=== PATIENT | female | born 1965 | race Caucasian/White ===

== ENCOUNTER 2022-01-11 13:03 | Inpatient (IN) | payer BC ==
[~2022-01-11] VITALS: Ht 165.1 cm; Wt 190.5 kg
[2022-01-11] MEDS ORDERED: BISACODYL 10 MG SUPP (DULCOLAX) PR PRN (13:15)
[2022-01-11] MEDS ORDERED: FLEET ENEMA ADULT 1 EA BTL PR PRN (13:15)
[2022-01-11] MEDS ORDERED: LACTULOSE SYRUP 10GM/15ML (ENULOSE) 30ML UDC PO PRN (13:15)
[2022-01-11] MEDS ORDERED: MELATONIN 3 MG TABLET PO PRN (13:15)
[2022-01-11] MEDS ORDERED: ALPRAZolam 0.25 MG (XANAX) TAB PO PRN (13:15)
[2022-01-11] MEDS ORDERED: ACETAMINOPHEN 325 MG TABLET PO PRN (13:15)
[2022-01-11] MEDS ORDERED: DOCUSATE SODIUM 100 MG (COLACE) CAP PO PRN (13:15)
[2022-01-11] MEDS ORDERED: CALCIUM CARBONATE 500 MG (TUMS) TAB.CHEW PO PRN (13:15)
[2022-01-11] MEDS ORDERED: LOPERAMIDE 2 MG (IMODIUM) TABLET PO PRN (13:15)
[2022-01-11] MEDS ORDERED: diphenhydrAMINE 25 MG TAB (BENADRYL) PO PRN (13:15)
[2022-01-11] MEDS ORDERED: ONDANSETRON 4 MG (ZOFRAN) ORAL DISSOLVE TAB PO PRN (13:15)
[2022-01-11] MEDS ORDERED: guaiFENesin/CODEINE (ROBITUSSIN AC) 10ML UDC PO PRN (13:15)
[2022-01-11] MEDS ORDERED: METF-478 PO (14:18)
[2022-01-11] MEDS ORDERED: ACET-2267 PO (14:18)
[2022-01-11] MEDS ORDERED: HYDR-3820 PO (14:18)
[2022-01-11] MEDS ORDERED: CHOL20003 PO (14:18)
[2022-01-11] MEDS ORDERED: MELO15TA39 PO (14:18)
[2022-01-11] MEDS ORDERED: FLUT9.9S NSEACH (14:18)
[2022-01-11] MEDS ORDERED: CYCL10TA25 PO (14:18)
[2022-01-11] MEDS ORDERED: CETI10TA17 PO (14:18)
[2022-01-11] MEDS ORDERED: LEVO50TA6 PO (14:18)
[2022-01-11] MEDS ORDERED: SEMA0.25 SQ (14:18)
[2022-01-11] MEDS ORDERED: PANT40TA52 PO (14:18)
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
[2022-01-11] MEDS ORDERED: RX-CYCLOBENZAPRINE 10 MG (FLEXERIL) TAB PPK#3 PO PRN (16:00)
[2022-01-11] MEDS ORDERED: NON-FORMULARY MEDICATION 1 EA EA (Semaglutide (Ozempic) 0.5 MG) SQ SCH (16:00)
[2022-01-11] MEDS ORDERED: CYCLOBENZAPRINE 10 MG (FLEXERIL) TAB PO PRN (16:15)
[2022-01-11 16:38] VITALS: BP 136/82
[2022-01-11] MEDS: ACETAMINOPHEN 500 MG TAB (TYLENOL) PO PRN (16:44)
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
[2022-01-11 20:00] VITALS: BP 132/81
[2022-01-11] MEDS: polyethylene glycoL POWDER 17 GM (MIRALAX) PACK PO SCH (21:40)
[2022-01-11] MEDS: DOCUSATE SODIUM 100 MG (COLACE) CAP PO SCH (21:40)
[2022-01-11] MEDS: SENNA W/DOCUSATE (SENOKOT S) TABLET PO SCH (21:44)
[2022-01-12] MEDS: ACETAMINOPHEN 500 MG TAB (TYLENOL) PO PRN ×3 (03:18→15:00)
[2022-01-12 06:03] LABS: BASOPHILS # (AUTO) 0.1 10^3/uL (0.0-0.1); BASOPHILS % (AUTO) 1 % (0-10); EOSINOPHILS # (AUTO) 0.6 10^3/uL (0.0-0.3); EOSINOPHILS % (AUTO) 11 % (0-10); HEMATOCRIT 35 % (35-52); LYMPHOCYTES # (AUTO) 1.2 10^3/uL (1.0-4.0); LYMPHOCYTES % (AUTO) 24 % (12-44); MEAN CORPUSCULAR HEMOGLOBIN 29 pg (25-34); MEAN CORPUSCULAR HGB CONC 31 g/dL (32-36); MEAN CORPUSCULAR VOLUME 92 fL (80-99); MONOCYTES # (AUTO) 0.6 10^3/uL (0.0-1.0); MONOCYTES % (AUTO) 12 % (0-12); NEUTROPHILS # (AUTO) 2.5 10^3/uL (1.8-7.8); NEUTROPHILS % (AUTO) 51 % (42-75); PLATELET COUNT 247 10^3/uL (130-400); WHITE BLOOD COUNT 4.8 10^3/uL (4.3-11.0)
[2022-01-12 06:16] LABS: POTASSIUM 3.5 MMOL/L (3.6-5.0)
[2022-01-12 06:17] LABS: CALCIUM 8.6 MG/DL (8.5-10.1)
[2022-01-12 06:18] LABS: TOTAL PROTEIN 5.8 GM/DL (6.4-8.2)
[2022-01-12 06:20] LABS: BILIRUBIN,TOTAL 0.7 MG/DL (0.1-1.0)
[2022-01-12 06:22] LABS: CREATININE SERUM 0.57 MG/DL (0.60-1.30)
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
[2022-01-12] MEDS: LEVOTHYROXINE 50 MCG (LEVOTHROID) TAB PO SCH (06:44)
[2022-01-12 08:00] VITALS: BP 132/76
[2022-01-12] MEDS: MELOXICAM 7.5 MG (MOBIC) TABLET PO SCH (08:09)
[2022-01-12] MEDS: DOCUSATE SODIUM 100 MG (COLACE) CAP PO SCH ×2 (08:09→21:10)
[2022-01-12] MEDS: SENNA W/DOCUSATE (SENOKOT S) TABLET PO SCH ×2 (08:10→21:10)
[2022-01-12] MEDS: LORATADINE (CLARITIN) 10 MG TAB PO SCH (08:10)
[2022-01-12] MEDS: VITAMIN D3 25 MCG (1,000 UNITS) TABLET PO SCH (08:11)
[2022-01-12] MEDS: metFORMIN XR 500 MG (GLUCOPHAGE XR) TAB PO SCH (08:11)
[2022-01-12] MEDS: PANTOPRAZOLE 40 MG (PROTONIX) TAB PO SCH (08:11)
[2022-01-12] MEDS: polyethylene glycoL POWDER 17 GM (MIRALAX) PACK PO SCH ×2 (08:12→21:10)
[2022-01-12] MEDS ORDERED: CETIRIZINE HCL (ZYRTEC) 10 MG TAB PO SCH (09:00)
[2022-01-12] MEDS ORDERED: NON-FORMULARY MEDICATION 1 EA EA (Meloxicam 15 MG) PO SCH (09:00)
[2022-01-12] MEDS ORDERED: NON-FORMULARY MEDICATION 1 EA EA (Fluticasone Propionate (Flonase Allergy Relief) 2 SPRAY) NSEACH SCH (09:00)
[2022-01-12] MEDS ORDERED: NON-FORMULARY MEDICATION 1 EA EA (Cholecalciferol (Vitamin D3) (Vitamin D3) 50 MCG) PO SCH (09:00)
--- NOTE | 2022-01-12 09:24 | Occupational Ther Daily Note ---
OT Current Status-Daily Note Subjective Pt alert, laying in bed when WOODALL entered. Pt agreed to therapy, no c/o pain reported. Mental Status/Objective Patient Orientation: Person, Place, Time, Situation ADL-Treatment Co-treat with PT ([phone]) due to skill of 2 clinicals required which a rehab office coordinator could not perform in order to coordinate UE/LEs, decrease fall risk, focus on higher level balance tasks, and due to pt's limitations in strength, mobility/transfers, and safety. PT focusing on transfers, w/c mobility and LE placement while OT focusing on UE placement, ADLs, and toileting. Pt agreed to get dressed for the day. Pt transferred from supine to EOB with CGA. Once at EOB, pt demonstrated good sitting balance. After set up, pt donned UB dressing. Pt required Max A to thread LB dressing through BLE. Pt required max A to don socks and footwear on LLE. Pt sit-stand from raised EOB with Mod A to hike LB dressing with Mod A x2. Pt SPT to w/c with Mod A. Once back in room from therapy gym, pt requested to use bathroom. Pt sit-stand using grabs bars with Max A. Pt required increased time. Pt sit-stand from toilet using grab bars with Max A. Required Min A with toilet hygiene. Pt completed oral hygiene while sitting in w/c independently. Therapy Code Descriptions/Definitions Functional [place] Measure: 0=Not Assessed/NA 4=Minimal Assistance 1=Total Assistance 5=Supervision or Setup 2=Maximal Assistance 6=Modified [place] 3=Moderate Assistance 7=Complete IndependenceSCALE: Activities may be completed with or without assistive devices. 0-Jzrhkcruxi-hmhnzpw completes the activity by him/herself with no assistance from a helper. 5-Set-up or Clean-up Assistance-helper sets up or cleans up; patient completes activity. [place] assists only prior to or following the activity. 4-Supervision or Touching Assistance-helper provides verbal cues and/or touching/steadying and/or contact guard assistance as patient completes activity. Assistance may be provided throughout the activity or intermittently. 3-Partial/Moderate Assistance-helper does LESS THAN HALF the effort. [place] lifts, holds or supports trunk or limbs, but provides less than half the effort. 2-Substantial/Maximal Assistance-helper does MORE THAN HALF the effort. [place] lifts or holds trunk or limbs and provides more than half the effort. 3-Gmjwbeybg-dyxvop does ALL the effort. Patient does none of the effort to complete the activity. Or, the assistance of 2 or more helpers is required for the patient to complete the activity. If activity was not attempted, code reason: 7-Patient Refused. 9-Not Applicable-not attempted and the patient did not perform the activity before the current illness, exacerbation or injury. 10-Not Attempted due to Environmental Limitations-(lack of equipment, weather restraints, etc.). 88-Not Attempted due to Medical Conditions or Safety Concerns. Oral Hygiene (QC): 6 (Independently sitting in w/c.) Upper Body Dressing (QC): 5 Lower Body Dressing (QC): 3 Toileting Hygiene (QC): 3 Toilet Transfer (QC): 2 Other Treatment Pt participated in functional w/c mobility from room to therapy for increased BUE strength and improved safety with w/c mobility at home. Pt required multiple resting breaks due to decreased activity tolerance and poor endurance. Pt was able to propell self forward group home then requested to go backwards the rest of the way to therapy gym. To increase dynamic standing balance, pt participated in x3 sit-insurance account executive parallel bars by reaching to tap therapist hand in planes alternating between L and R. Pt demonstrated fair balance and fatigued quickly. Education OT Patient Education: Correct positioning, Energy conservation, Exercise program Teaching Recipient: Patient Teaching Methods: Demonstration, Discussion Response to Teaching: Verbalize Understanding, Return Demonstration OT Short Term Goals Short Term Goals Time Frame: Jan 18, 2022 Eatin Oral hygiene: 5 Toileting hygiene: 2 Shower/bathe self: 3 Upper body dressin Lower body dressin Putting on/taking off footwear: 2 OT Mcc Goals It Compliance Analyst Goals Time Frame: January 30, 2022 Eating (QC): 6 Oral Hygiene (QC): 6 Toileting Hygiene (QC): 6 Shower/Bathe Self (QC): 5 Upper Body Dressing (QC): 5 Lower Body Dressing (QC): 5 On/Off Footwear (QC): 5 1=Demonstrate adherence to instructed precautions during ADL tasks. 2=Patient will verbalize/demonstrate understanding of assistive dev ices/modifications for ADL. 3=Patient will improve strength/tolerance for activity to enable patient to perform ADL's. OT Education/Plan Problem List/Assessment Assessment: Decreased Activ Tolerance, Decreased UE Strength, Impaired I ADL's, Impaired Self-Care Skills Discharge Recommendations Plan/Recommendations: Continue POC Treatment Plan/Plan of Care Patient would benefit from OT for education, treatment and training to promote independence in ADL's, mobility, safety and/or upper extremity function for ADL's. Plan of Care: ADL Retraining, Functional Mobility, Group Exercise/Act as Ind, Orthotic Fitting/Training, UE Funct Exercise/Act, W/C Management Training Treatment Duration: January 30, 2022 Frequency: At least 5 of 7 days/Wk (IRF) Estimated Hrs Per Day: 1.5 hours per day Rehab Potential: Fair Time/GCodes Start Time: 08:00 Stop Time: 09:15 Total Time Billed (hr/min): 75 Billed Treatment Time 1 visit- ADL 3 (45 mins) FA 2 (30mins) Co-treat with PT ([phone]) Individual ([phone]) GAYATRI MAR Jan 12, 2022 09:24
--- NOTE | 2022-01-12 09:34 | Physical Therapy Daily Note ---
PT Daily Note-Current Subjective Patient reports feeling good today and not in much pain. PT and OT co-treated today to work on Functional standing and transfer activities due to weakness, requiring extra assistance for transfers, fall risk and safety Pain Numeric Pain Scale: 1 Location: Right Location Body Site: Ankle Mental Status Patient Orientation: Person, Place, Time, Situation [place] Transfers SCALE: Activities may be completed with or without assistive devices. 5-Xrujlacffh-kvvmvmy completes the activity by him/herself with no assistance from a helper. 5-Set-up or Clean-up Assistance-helper sets up or cleans up; patient completes activity. [place] assists only prior to or following the activity. 4-Supervision or Touching Assistance-helper provides verbal cues and/or touching/steadying and/or contact guard assistance as patient completes activity. Assistance may be provided throughout the activity or intermittently. 3-Partial/Moderate Assistance-helper does LESS THAN HALF the effort. [place] lifts, holds or supports trunk or limbs, but provides less than half the effort. 2-Substantial/Maximal Assistance-helper does MORE THAN HALF the effort. [place] lifts or holds trunk or limbs and provides more than half the effort. 2-Mbzfzehgk-fekufx does ALL the effort. Patient does none of the effort to compl ete the activity. Or, the assistance of 2 or more helpers is required for the patient to complete the activity. If activity was not attempted, code reason: 7-Patient Refused. 9-Not Applicable-not attempted and the patient did not perform the activity before the current illness, exacerbation or injury. 10-Not Attempted due to Environmental Limitations-(lack of equipment, weather restraints, etc.). 88-Not Attempted due to Medical Conditions or Safety Concerns. Roll Left & Right (QC): 5 Sit to Lying (QC): 3 Lying to Sitting/Side of Bed(Q: 3 Sit to Stand (QC): 2 Chair/Yiq-hd-Hwwrn Xfer(QC): 2 Toilet Transfer (QC): 2 Weight Bearing Right Lower Extremity: Right Touch Toe Bearing Full Weight Bearing Gait Training Does the Patient Walk?: No and Walking Goal IS indicated Wheelchair Training Does the Pt Use a Wheelchair?: Yes Wheel 50 ft with 2 turns (QC): 4 (SBA) Type of Wheelchair: Manual Distance:120'x2 Exercises Standing: Sit to Stand Standing Reps: 3 Parallel bars. Treatments Wheelchair mobility, Standing balance, transfers. Assessment Current Status: Fair Progress Patient can propel wheel chair herself using L LE and arms, but it is very slow and fatiguing for her and can only go short distances before needing a rest break. Patient starts off by propelling forward, but when fatigued, finds it easier to propel backwards. Patient requires max assist to stand and can only stand for a short time (about 30seconds), and requires verbal cues for correct technique and positioning. PT worked on standing balance and transfers, while OT worked on dressing, and toileting. Patient was left with OT to continue self- care activities. PT Short Term Goals Short Term Goals Time Frame: Jan 18, 2022 Roll Left & Right: 6 Sit to lyin Lying to sitting on side of be: 4 Sit to stand: 3 Chair/umq-sw-qxbec transfer: 4 Wheel 50ft w/2 turns: 3 PT Political Research Scientist Goals Correction Goals PT Political Research Scientist Goals Time Frame: February 01, 2022 Roll Left & Right (QC): 6 Sit to Lying (QC): 3 (Brianna) Lying-Sitting on Side/Bed(QC): 6 Sit to Stand (QC): 4 (CGA) Chair/Wvq-nj-Gysut Xfer(QC): 4 (SBA) Toilet Transfer (QC): 4 (SBA) Car Transfer (QC): 3 (Brianna) Does the Patient Walk: Yes Walk 10 feet (QC): 4 (CGA) Walk 50ft with 2 Turns (QC): 88 Walk 150 ft (QC): 88 Walking 10ft on Uneven Surface: 88 1 Step (curb) (QC): 88 4 Steps (QC): 88 12 Steps (QC): 88 Picking up an Object (QC): 4 (using technical operations specialist) Wheel 50 feet with 2 turns (QC: 4 Wheel 150 feet: 4 PT Plan Problem List Problem List: Activity Tolerance, Functional Strength, Safety, Balance, Gait, Transfer, Bed Mobility, ROM Treatment/Plan Treatment Plan: Continue Plan of Care Treatment Plan: Bed Mobility, Education, Functional Activity Yadi, Functional Strength, Group Therapy, Gait, Safety, Therapeutic Exercise, Transfers Treatment Duration: February 01, 2022 Frequency: At least 5 of 7 days/Wk (IRF) Estimated Hrs Per Day: 1.5 hours per day Patient and/or Family Agrees t: Yes Safety Risks/Education Patient Education: Gait Training, Transfer Techniques, Correct Positioning, W/C Management, Disease Process, Safety Issues Teaching Recipient: Patient Teaching Methods: Discussion Response to Teaching: Verbalize Understanding, Return Demonstration, Reinforcement Needed Time/GCodes Time In: 0800 Time Out: 0900 Total Billed Treatment Time: 60 Total Billed Treatment 1 visit FA 60min MARLEN NEUMANN PT Jan 12, 2022 09:34
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
--- NOTE | 2022-01-12 14:58 | Physical Therapy Daily Note ---
PT Daily Note-Current Subjective Patient was in bed and consented to treatment. Patient had just finished her lunch. Pain Location: No Pain Reported Mental Status Patient Orientation: Person, Place, Time, Situation [place] Transfers SCALE: Activities may be completed with or without assistive devices. 6-Ztmrbjlvkv-yrbquus completes the activity by him/herself with no assistance from a helper. 5-Set-up or Clean-up Assistance-helper sets up or cleans up; patient completes activity. [place] assists only prior to or following the activity. 4-Supervision or Touching Assistance-helper provides verbal cues and/or touching/steadying and/or contact guard assistance as patient completes activity. Assistance may be provided throughout the activity or intermittently. 3-Partial/Moderate Assistance-helper does LESS THAN HALF the effort. [place] lifts, holds or supports trunk or limbs, but provides less than half the effort. 2-Substantial/Maximal Assistance-helper does MORE THAN HALF the effort. [place] lifts or holds trunk or limbs and provides more than half the effort. 0-Woesfuxvb-yakgro does ALL the effort. Patient does none of the effort to complete the activity. Or, the assistance of 2 or more helpers is required for the patient to complete the activity. If activity was not attempted, code reason: 7-Patient Refused. 9-Not Applicable-not attempted and the patient did not perform the activity before the current illness, exacerbation or injury. 10-Not Attempted due to Environmental Limitations-(lack of equipment, weather restraints, etc.). 88-Not Attempted due to Medical Conditions or Safety Concerns. Weight Bearing Right Lower Extremity: Right Touch Toe Bearing Full Weight Bearing Exercises Supine Ex: Ankle pumps, Quad Set, Glut sets, Heel Slides, Straight leg raise, Hip abd/add Supine Reps: 10 Treatments LE strengthening Assessment Current Status: Good Progress Patient demonstrates weakness and ROM (B) with LE exercises but states she wants to do them regularly. Patient was left in bed with call light, tray, and all needs met. PT Short Term Goals Short Term Goals Time Frame: Jan 18, 2022 Roll Left & Right: 6 Sit to lyin Lying to sitting on side of be: 4 Sit to stand: 3 Chair/jss-qa-sjkzi transfer: 4 Wheel 50ft w/2 turns: 3 PT Usp Goals Usp Goals PT Health Care Administrator Goals Time Frame: February 01, 2022 Roll Left & Right (QC): 6 Sit to Lying (QC): 3 (Brianna) Lying-Sitting on Side/Bed(QC): 6 Sit to Stand (QC): 4 (CGA) Chair/Vxq-qa-Qxwwl Xfer(QC): 4 (SBA) Toilet Transfer (QC): 4 (SBA) Car Transfer (QC): 3 (Brianna) Does the Patient Walk: Yes Walk 10 feet (QC): 4 (CGA) Walk 50ft with 2 Turns (QC): 88 Walk 150 ft (QC): 88 Walking 10ft on Uneven Surface: 88 1 Step (curb) (QC): 88 4 Steps (QC): 88 12 Steps (QC): 88 Picking up an Object (QC): 4 (using space systems operations manager) Wheel 50 feet with 2 turns (QC: 4 Wheel 150 feet: 4 PT Plan Problem List Problem List: Activity Tolerance, Functional Strength, Safety, Balance, Gait, Transfer, Bed Mobility, ROM Treatment/Plan Treatment Plan: Continue Plan of Care Treatment Plan: Bed Mobility, Education, Functional Activity Yadi, Functional Strength, Group Therapy, Gait, Safety, Therapeutic Exercise, Transfers Treatment Duration: February 01, 2022 Frequency: At least 5 of 7 days/Wk (IRF) Estimated Hrs Per Day: 1.5 hours per day Patient and/or Family Agrees t: Yes Safety Risks/Education Patient Education: Correct Positioning, Safety Issues Teaching Recipient: Patient Teaching Methods: Discussion Response to Teaching: Verbalize Understanding Instructed on bed exercises previously listed in the room 3x per day. Time/GCodes Time In: 1255 Time Out: 1310 Total Billed Treatment Time: 15 Total Billed Treatment 1 visit EX 15 MARLEN NEUMANN PT Jan 12, 2022 14:58
--- NOTE | 2022-01-12 16:14 | Diagnostic Imaging Report ---
PROCEDURE: Pelvic comp/transvaginal sonogram. TECHNIQUE: Complete transabdominal and transvaginal pelvic ultrasound was performed. In addition, limited pelvic Doppler was performed. INDICATION: Vaginal mass noted on outside CT. FINDINGS: Outside study is not available for comparison. Uterus may be surgically absent or nonvisualized. There is a cystic mass in the region of the cervix measuring 3.5 x 2.5 cm. This may account for the mass noted on outside imaging. Right ovary measures 3.1 x 1.4 x 2.6 cm. There is blood flow to the right ovary. Left ovary was not visualized. Overall quality of study is somewhat limited due to patient body habitus. IMPRESSION: There is a large cystic lesion in the region of the cervix of 3.5 cm x 2.5 cm x 4.0 cm. This may account for the abnormality noted on outside imaging. No other significant abnormality is detected. Dictated by: Dictated on workstation # [id number]
[2022-01-12] MEDS: FLUTICASONE NASAL SPRAY (FLONASE) 16 GM BTL NS SCH (16:37)
[2022-01-12 20:37] VITALS: BP 109/73
[2022-01-12] MEDS: MICONAZOLE 2% POWDER (DESENEX AF) 90 GM TOP SCH (21:10)
[2022-01-13] MEDS: ACETAMINOPHEN 500 MG TAB (TYLENOL) PO PRN ×3 (01:02→17:57)
[2022-01-13] MEDS: LEVOTHYROXINE 50 MCG (LEVOTHROID) TAB PO SCH (06:08)
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
[2022-01-13 07:37] VITALS: BP 122/61
[2022-01-13] MEDS: FLUTICASONE NASAL SPRAY (FLONASE) 16 GM BTL NS SCH (08:06)
[2022-01-13] MEDS: PANTOPRAZOLE 40 MG (PROTONIX) TAB PO SCH (08:07)
[2022-01-13] MEDS: VITAMIN D3 25 MCG (1,000 UNITS) TABLET PO SCH (08:07)
[2022-01-13] MEDS: MELOXICAM 7.5 MG (MOBIC) TABLET PO SCH (08:07)
[2022-01-13] MEDS: LORATADINE (CLARITIN) 10 MG TAB PO SCH (08:07)
[2022-01-13] MEDS: metFORMIN XR 500 MG (GLUCOPHAGE XR) TAB PO SCH (08:07)
--- NOTE | 2022-01-13 09:33 | Physical Therapy Daily Note ---
PT Daily Note-Current Subjective Patient was in bed prior to treatment and consented with no new complaints. Patient states that she would like to take a shower. Patient was co-treated with OT due to balance issues, weakness, TTWB status, fall risk, and safety. Appearance Patient in WC at bedside post tx with nurse call, phone, tray, all needs met. Mental Status Patient Orientation: Person, Place, Time, Situation cam boot Transfers SCALE: Activities may be completed with or without assistive devices. 8-Ttdwzimenv-bzzahok completes the activity by him/herself with no assistance from a helper. 5-Set-up or Clean-up Assistance-helper sets up or cleans up; patient completes activity. [place] assists only prior to or following the activity. 4-Supervision or Touching Assistance-helper provides verbal cues and/or touching/steadying and/or contact guard assistance as patient completes activit y. Assistance may be provided throughout the activity or intermittently. 3-Partial/Moderate Assistance-helper does LESS THAN HALF the effort. [place] lifts, holds or supports trunk or limbs, but provides less than half the effort. 2-Substantial/Maximal Assistance-helper does MORE THAN HALF the effort. [place] lifts or holds trunk or limbs and provides more than half the effort. 8-Layhxxhdf-nnubtz does ALL the effort. Patient does none of the effort to complete the activity. Or, the assistance of 2 or more helpers is required for the patient to complete the activity. If activity was not attempted, code reason: 7-Patient Refused. 9-Not Applicable-not attempted and the patient did not perform the activity before the current illness, exacerbation or injury. 10-Not Attempted due to Environmental Limitations-(lack of equipment, weather restraints, etc.). 88-Not Attempted due to Medical Conditions or Safety Concerns. Sit to Stand (QC): 2 Chair/Ibb-np-Iuuqz Xfer(QC): 2 Weight Bearing Right Lower Extremity: Right Touch Toe Bearing Full Weight Bearing Gait Training Does the Patient Walk?: No and Walking Goal IS indicated Wheelchair Training Does the Pt Use a Wheelchair?: Yes Wheel 50 ft with 2 turns (QC): 4 Type of Wheelchair: Manual wheeled 100ft with multiple turns. Mobility was slow paced Exercises Standing: Sit to Stand Standing Reps: 4 PT worked on positioning, standing balance, transfer technique. OT worked on UE positioning, reaching, UE coordination. Patient also performed Hip flexion and ABD for 10reps Treatments Bathing with OT, wheelchair mobility, standing tolerance and balance, LE strengthening Assessment Current Status: Fair Progress Patient was showered today with OT today. PT and OT co-treaded today; PT worked on transfers, and positioning, OT worked on bathing, UE positioning, and coordination. Pt transfer from bed to chair was still max assist, but is slightly improving. Patient was able to stand for longer time (up to 2 min) compared to previous session, and also better able to perform UE activities with OT while standing. Patient is mostly compliant with WB status today. Patient demonstrated improved strength with WC mobility, and was able to wheel forward the entire distance back to her room (100ft). Patient was left in chair, with call light, tray, and all needs met. PT Short Term Goals Short Term Goals Time Frame: Jan 18, 2022 Roll Left & Right: 6 Sit to lyin Lying to sitting on side of be: 4 Sit to stand: 3 Chair/tkz-id-wgque transfer: 4 Wheel 50ft w/2 turns: 3 PT Longterm Goals Concert Promoter Goals PT Concert Promoter Goals Time Frame: February 01, 2022 Roll Left & Right (QC): 6 Sit to Lying (QC): 3 (Brianna) Lying-Sitting on Side/Bed(QC): 6 Sit to Stand (QC): 4 (CGA) Chair/Xuy-ci-Twbfn Xfer(QC): 4 (SBA) Toilet Transfer (QC): 4 (SBA) Car Transfer (QC): 3 (Brianna) Does the Patient Walk: Yes Walk 10 feet (QC): 4 (CGA) Walk 50ft with 2 Turns (QC): 88 Walk 150 ft (QC): 88 Walking 10ft on Uneven Surface: 88 1 Step (curb) (QC): 88 4 Steps (QC): 88 12 Steps (QC): 88 Picking up an Object (QC): 4 (using test consultant) Wheel 50 feet with 2 turns (QC: 4 Wheel 150 feet: 4 PT Plan Problem List Problem List: Activity Tolerance, Functional Strength, Safety, Balance, Gait, Transfer, Bed Mobility, ROM Treatment/Plan Treatment Plan: Continue Plan of Care Treatment Plan: Bed Mobility, Education, Functional Activity Yadi, Functional Strength, Group Therapy, Gait, Safety, Therapeutic Exercise, Transfers Treatment Duration: February 01, 2022 Frequency: At least 5 of 7 days/Wk (IRF) Estimated Hrs Per Day: 1.5 hours per day Patient and/or Family Agrees t: Yes Safety Risks/Education Patient Education: Transfer Techniques, Correct Positioning, W/C Management, Safety Issues Teaching Recipient: Patient Teaching Methods: Discussion Response to Teaching: Verbalize Understanding, Return Demonstration Time/GCodes Time In: 0900 Time Out: 1030 Total Billed Treatment Time: 90 Total Billed Treatment 1 visit FA 60 min EX 30min MARLEN NEUMANN PT Jan 13, 2022 09:33
[2022-01-13] MEDS: DOCUSATE SODIUM 100 MG (COLACE) CAP PO SCH ×2 (10:23→20:45)
[2022-01-13] MEDS: polyethylene glycoL POWDER 17 GM (MIRALAX) PACK PO SCH ×2 (10:23→20:45)
[2022-01-13] MEDS: SENNA W/DOCUSATE (SENOKOT S) TABLET PO SCH ×2 (10:24→20:45)
--- NOTE | 2022-01-13 10:25 | Occupational Ther Daily Note ---
OT Current Status-Daily Note Subjective Pt alert, laying in bed with HOB raised when WOOD[place] entered. Pt requested to complete shower today. No c/o pain reported. Mental Status/Objective Patient Orientation: Person, Place, Time, Situation Attachments: Other-See Comments ADL-Treatment Co-treat with PT ([phone]) due to skill of 2 clinicals required which a rehab department manager could not perform in order to coordinate UE/LEs, decrease fall risk, focus on higher level balance tasks, and due to pt's limitations in strength, mobility/transfers, and safety. PT focusing on LE placement, transfers, and w/c mobility while OT focuses on ADLs, UE placement, amnd functional/safe balance. Pt transferred from supine to EOB with supervision. Pt SPT from EOB to shower chair. See PT notes for transfer scores. Pt transported from room to shower room. Pt performed shower and was able to cleanse/dry UB, chest, abdomen, and upper L L. Pt required assist to cleanse L lower leg and buttocks. After set up, pt donned UB dressing. Required assist to thread BLE through LB dressing. Pt sit-stand from shower chair to hike LB dressing with Mod A. Required Max A to don L footwear. Once back in room, pt completed oral hygiene and basic grooming task of combing hair while sitting in w/c at bathroom sink independently. After session, pt sitting in w/c. Call light in reach and all needs met. Therapy Code Descriptions/Definitions Functional [place] Measure: 0=Not Assessed/NA 4=Minimal Assistance 1=Total Assistance 5=Supervision or Setup 2=Maximal Assistance 6=Modified [place] 3=Moderate Assistance 7=Complete IndependenceSCALE: Activities may be completed with or without assistive devices. 7-Nnxlradetg-ywefeji completes the activity by him/herself with no assistance from a helper. 5-Set-up or Clean-up Assistance-helper sets up or cleans up; patient completes activity. [place] assists only prior to or following the activity. 4-Supervision or Touching Assistance-helper provides verbal cues and/or touching/steadying and/or contact guard assistance as patient completes activity. Assistance may be provided throughout the activity or intermittently. 3-Partial/Moderate Assistance-helper does LESS THAN HALF the effort. [place] lifts, holds or supports trunk or limbs, but provides less than half the effort. 2-Substantial/Maximal Assistance-helper does MORE THAN HALF the effort. [place] lifts or holds trunk or limbs and provides more than half the effort. 7-Vkudcbtyc-ybbaru does ALL the effort. Patient does none of the effort to complete the activity. Or, the assistance of 2 or more helpers is required for the patient to complete the activity. If activity was not attempted, code reason: 7-Patient Refused. 9-Not Applicable-not attempted and the patient did not perform the activity before the current illness, exacerbation or injury. 10-Not Attempted due to Environmental Limitations-(lack of equipment, weather restraints, etc.). 88-Not Attempted due to Medical Conditions or Safety Concerns. Oral Hygiene (QC): 6 Bathing Location: L Arm, R Arm, L Upper Leg, R Upper Leg, Chest, Abdomen Shower/Bathe Self (QC): 3 Upper Body Dressing (QC): 5 Lower Body Dressing (QC): 3 On/Off Footwear: 2 Other Treatment Pt transported to therapy gym. Pt participated in dynamic x2 standing tasks in parallel bars by reaching BUE outside [place] to grasp cones alternating between L and R. Pt tolerated activity well and demonstrated fair balance. Pt fatigued quickly, required increased resting break in between each set. Pt participated in functional w/c mobility task from therapy gym to room to increase BUE strength and activity tolerance. Pt required increase time and resting breaks due to fatigue. Education OT Patient Education: Correct positioning, Energy conservation, Modified ADL techniques, Purpose of tx/functional activities, Safety issues, Transfer techniques Teaching Recipient: Patient Teaching Methods: Demonstration, Discussion Response to Teaching: Verbalize Understanding, Return Demonstration OT Short Term Goals Short Term Goals Time Frame: Jan 18, 2022 Eatin Oral hygiene: 5 Toileting hygiene: 2 Shower/bathe self: 3 Upper body dressin Lower body dressin Putting on/taking off footwear: 2 OT Chcf Goals Chcf Goals Time Frame: January 30, 2022 Eating (QC): 6 Oral Hygiene (QC): 6 Toileting Hygiene (QC): 6 Shower/Bathe Self (QC): 5 Upper Body Dressing (QC): 5 Lower Body Dressing (QC): 5 On/Off Footwear (QC): 5 1=Demonstrate adherence to instructed precautions during ADL tasks. 2=Patient will verbalize/demonstrate understanding of assistive devices/modifications for ADL. 3=Patient will improve strength/tolerance for activity to enable patient to perform ADL's. OT Education/Plan Problem List/Assessment Assessment: Decreased Activ Tolerance, Decreased UE Strength, Impaired Funct Balance, Impaired I ADL's, Impaired Self-Care Skills, Restricted Funct UE ROM Discharge Recommendations Plan/Recommendations: Continue POC Treatment Plan/Plan of Care Patient would benefit from OT for education, treatment and training to promote independence in ADL's, mobility, safety and/or upper extremity function for ADL's. Plan of Care: ADL Retraining, Functional Mobility, Group Exercise/Act as Ind, Orthotic Fitting/Training, UE Funct Exercise/Act, W/C Management Training Treatment Duration: January 30, 2022 Frequency: At least 5 of 7 days/Wk (IRF) Estimated Hrs Per Day: 1.5 hours per day Rehab Potential: Fair Time/GCodes Start Time: 09:00 Stop Time: 10:30 Total Time Billed (hr/min): 90 Billed Treatment Time 1 visit- ADL 4 (64 mins) FA 2 (26 mins) Co-treat with PT ([phone]) GAYATRI MAR Jan 13, 2022 10:25
[2022-01-13] MEDS: MICONAZOLE 2% POWDER (DESENEX AF) 90 GM TOP SCH ×2 (11:33→20:37)
[2022-01-13] MEDS: RIVAROXABAN 10 MG TABLET (XARELTO) PO SCH (17:41)
[2022-01-13 20:28] VITALS: BP 125/70
[2022-01-14] MEDS: ACETAMINOPHEN 500 MG TAB (TYLENOL) PO PRN ×2 (04:14→10:54)
[2022-01-14] MEDS: LEVOTHYROXINE 50 MCG (LEVOTHROID) TAB PO SCH (06:05)
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
[2022-01-14 08:41] VITALS: BP 128/70
[2022-01-14] MEDS: MELOXICAM 7.5 MG (MOBIC) TABLET PO SCH (09:27)
[2022-01-14] MEDS: PANTOPRAZOLE 40 MG (PROTONIX) TAB PO SCH (09:27)
[2022-01-14] MEDS: metFORMIN XR 500 MG (GLUCOPHAGE XR) TAB PO SCH (09:27)
[2022-01-14] MEDS: LORATADINE (CLARITIN) 10 MG TAB PO SCH (09:27)
[2022-01-14] MEDS: VITAMIN D3 25 MCG (1,000 UNITS) TABLET PO SCH (09:28)
[2022-01-14] MEDS: DOCUSATE SODIUM 100 MG (COLACE) CAP PO SCH ×2 (09:30→19:29)
[2022-01-14] MEDS: polyethylene glycoL POWDER 17 GM (MIRALAX) PACK PO SCH ×2 (09:30→19:29)
[2022-01-14] MEDS: SENNA W/DOCUSATE (SENOKOT S) TABLET PO SCH ×2 (09:30→19:29)
[2022-01-14] MEDS: MICONAZOLE 2% POWDER (DESENEX AF) 90 GM TOP SCH ×2 (09:31→20:32)
[2022-01-14] MEDS: FLUTICASONE NASAL SPRAY (FLONASE) 16 GM BTL NS SCH (09:31)
--- NOTE | 2022-01-14 10:41 | Physical Therapy Daily Note ---
PT Daily Note-Current Subjective Pt in sitting in bariatric upon arrival and agrees to PT. Pt inquires about sitting in smaller green chair so she doesn't get stuck. But therapist informs her that it is probably too small. Reports she is having a little pain but does not rate. Pain Location: Right Location Body Site: Ankle Mental Status Patient Orientation: Person, Place, Time, Situation Transfers SCALE: Activities may be completed with or without assistive devices. 4-Jgbgzslced-lsoabrf completes the activity by him/herself with no assistance from a helper. 5-Set-up or Clean-up Assistance-helper sets up or cleans up; patient completes activity. [place] assists only prior to or following the activity. 4-Supervision or Touching Assistance-helper provides verbal cues and/or touching/steadying and/or contact guard assistance as patient completes activity. Assistance may be provided throughout the activity or intermittently. 3-Partial/Moderate Assistance-helper does LESS THAN HALF the effort. [place] lifts, holds or supports trunk or limbs, but provides less than half the effort. 2-Substantial/Maximal Assistance-helper does MORE THAN HALF the effort. [place] lifts or holds trunk or limbs and provides more than half the effort. 5-Ilhdenmym-yozzkd does ALL the effort. Patient does none of the effort to complete the activity. Or, the assistance of 2 or more helpers is required for the patient to complete the activity. If activity was not attempted, code reason: 7-Patient Refused. 9-Not Applicable-not attempted and the patient did not perform the activity before the current illness, exacerbation or injury. 10-Not Attempted due to Environmental Limitations-(lack of equipment, weather restraints, etc.). 88-Not Attempted due to Medical Conditions or Safety Concerns. Weight Bearing Right Lower Extremity: Right Touch Toe Bearing Full Weight Bearing Exercises Seated Therapy Exercises: Ankle pumps, Long arc quads, Hip flexion, Hamstring Curls, Hip abd/add, Glut set Seated Reps: 20 Treatments Pt in bariatric chair upon departure w/ all needs met and call light nearby. Assessment Current Status: Fair Progress Pt requires skilled verbal and tactile cues for LE position during seated exs. PT Short Term Goals Short Term Goals Time Frame: Jan 18, 2022 Roll Left & Right: 6 Sit to lyin Lying to sitting on side of be: 4 Sit to stand: 3 Chair/vfi-nl-tkqvd transfer: 4 Wheel 50ft w/2 turns: 3 PT Manager Of Network Goals Skilled Nursing Goals PT Manager Of Network Goals Time Frame: February 01, 2022 Roll Left & Right (QC): 6 Sit to Lying (QC): 3 (Brianna) Lying-Sitting on Side/Bed(QC): 6 Sit to Stand (QC): 4 (CGA) Chair/Qdw-xf-Qnqfb Xfer(QC): 4 (SBA) Toilet Transfer (QC): 4 (SBA) Car Transfer (QC): 3 (Brianna) Does the Patient Walk: Yes Walk 10 feet (QC): 4 (CGA) Walk 50ft with 2 Turns (QC): 88 Walk 150 ft (QC): 88 Walking 10ft on Uneven Surface: 88 1 Step (curb) (QC): 88 4 Steps (QC): 88 12 Steps (QC): 88 Picking up an Object (QC): 4 (using compliance and control analyst) Wheel 50 feet with 2 turns (QC: 4 Wheel 150 feet: 4 PT Plan Problem List Problem List: Activity Tolerance, Functional Strength Treatment/Plan Treatment Plan: Continue Plan of Care Treatment Plan: Bed Mobility, Education, Functional Activity Yadi, Functional Strength, Group Therapy, Gait, Safety, Therapeutic Exercise, Transfers Treatment Duration: February 01, 2022 Frequency: At least 5 of 7 days/Wk (IRF) Estimated Hrs Per Day: 1.5 hours per day Patient and/or Family Agrees t: Yes Safety Risks/Education Patient Education: Correct Positioning Teaching Recipient: Patient Teaching Methods: Discussion Response to Teaching: Return Demonstration Time/GCodes Time In: 940 Time Out: 955 Total Billed Treatment Time: 15 Total Billed Treatment 1, Ex [facility] Jan 14, 2022 10:41
[2022-01-14] MEDS: RIVAROXABAN 10 MG TABLET (XARELTO) PO SCH (18:02)
[2022-01-14 20:58] VITALS: BP 134/74
[2022-01-15] MEDS: LEVOTHYROXINE 50 MCG (LEVOTHROID) TAB PO SCH (04:54)
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
[2022-01-15] MEDS: PANTOPRAZOLE 40 MG (PROTONIX) TAB PO SCH (07:53)
[2022-01-15] MEDS: LORATADINE (CLARITIN) 10 MG TAB PO SCH (07:53)
[2022-01-15] MEDS: MELOXICAM 7.5 MG (MOBIC) TABLET PO SCH (07:54)
[2022-01-15] MEDS: MICONAZOLE 2% POWDER (DESENEX AF) 90 GM TOP SCH ×2 (07:54→21:21)
[2022-01-15] MEDS: VITAMIN D3 25 MCG (1,000 UNITS) TABLET PO SCH (07:54)
[2022-01-15] MEDS: metFORMIN XR 500 MG (GLUCOPHAGE XR) TAB PO SCH (07:54)
[2022-01-15 08:00] VITALS: BP 120/59
[2022-01-15] MEDS: DOCUSATE SODIUM 100 MG (COLACE) CAP PO SCH ×2 (08:50→19:26)
[2022-01-15] MEDS: polyethylene glycoL POWDER 17 GM (MIRALAX) PACK PO SCH ×2 (08:51→19:26)
[2022-01-15] MEDS: SENNA W/DOCUSATE (SENOKOT S) TABLET PO SCH ×2 (08:51→19:26)
[2022-01-15] MEDS: ACETAMINOPHEN 500 MG TAB (TYLENOL) PO PRN (10:16)
[2022-01-15] MEDS: RIVAROXABAN 10 MG TABLET (XARELTO) PO SCH (18:11)
[2022-01-15 19:31] VITALS: BP 115/74
[2022-01-15] MEDS: MELATONIN 3 MG TABLET PO SCH ×2 (21:20→21:21)
[2022-01-15] MEDS: ALPRAZolam 0.5 MG (XANAX) TAB PO SCH ×2 (21:22→22:55)
[2022-01-16] MEDS: LEVOTHYROXINE 50 MCG (LEVOTHROID) TAB PO SCH (04:57)
[2022-01-16 05:31] LABS: BASOPHILS % (AUTO) 1 % (0-10); EOSINOPHILS # (AUTO) 0.5 10^3/uL (0.0-0.3); EOSINOPHILS % (AUTO) 11 % (0-10); HEMATOCRIT 34 % (35-52); HEMOGLOBIN 10.7 g/dL (11.5-16.0); LYMPHOCYTES # (AUTO) 1.3 10^3/uL (1.0-4.0); LYMPHOCYTES % (AUTO) 26 % (12-44); MEAN CORPUSCULAR HEMOGLOBIN 29 pg (25-34); MEAN CORPUSCULAR HGB CONC 31 g/dL (32-36); MEAN CORPUSCULAR VOLUME 93 fL (80-99); MEAN PLATELET VOLUME 9.8 fL (9.0-12.2); MONOCYTES # (AUTO) 0.8 10^3/uL (0.0-1.0); MONOCYTES % (AUTO) 16 % (0-12); NEUTROPHILS # (AUTO) 2.3 10^3/uL (1.8-7.8); NEUTROPHILS % (AUTO) 46 % (42-75); PLATELET COUNT 294 10^3/uL (130-400); WHITE BLOOD COUNT 4.9 10^3/uL (4.3-11.0)
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
[2022-01-16 05:47] LABS: ALBUMIN 3.2 GM/DL (3.2-4.5); POTASSIUM 3.8 MMOL/L (3.6-5.0)
[2022-01-16 05:48] LABS: CALCIUM 8.6 MG/DL (8.5-10.1)
[2022-01-16 05:50] LABS: TOTAL PROTEIN 5.9 GM/DL (6.4-8.2)
[2022-01-16 05:51] LABS: BILIRUBIN,TOTAL 0.5 MG/DL (0.1-1.0)
[2022-01-16 05:53] LABS: CREATININE SERUM 0.61 MG/DL (0.60-1.30)
[2022-01-16 07:20] VITALS: BP 147/85
[2022-01-16] MEDS: SENNA W/DOCUSATE (SENOKOT S) TABLET PO SCH ×2 (07:23→21:10)
[2022-01-16] MEDS: DOCUSATE SODIUM 100 MG (COLACE) CAP PO SCH ×2 (07:23→21:10)
[2022-01-16] MEDS: polyethylene glycoL POWDER 17 GM (MIRALAX) PACK PO SCH ×2 (07:23→21:10)
[2022-01-16] MEDS: MELOXICAM 7.5 MG (MOBIC) TABLET PO SCH (07:30)
[2022-01-16] MEDS: LORATADINE (CLARITIN) 10 MG TAB PO SCH (07:30)
[2022-01-16] MEDS: metFORMIN XR 500 MG (GLUCOPHAGE XR) TAB PO SCH (07:30)
[2022-01-16] MEDS: VITAMIN D3 25 MCG (1,000 UNITS) TABLET PO SCH (07:30)
[2022-01-16] MEDS: PANTOPRAZOLE 40 MG (PROTONIX) TAB PO SCH (07:30)
[2022-01-16] MEDS: MICONAZOLE 2% POWDER (DESENEX AF) 90 GM TOP SCH ×2 (07:31→21:28)
--- NOTE | 2022-01-16 09:15 | Consultation - Ortho ---
Consult - Ortho Subjective Date of Exam 01/16/22 Chief Complaint Right Ankle Injury HPI/Events since last exam underwent fixation of right bimalleolar ankle fracture with Dr. Bashir in [place] on 01/07/22, I was asked to consult while she is on our rehab floor Medical, Surgical History not obtained Social History not obtained Family History not obtained Review of Systems not obtained Allergies: Coded Allergies: Penicillins (Verified Allergy, Unknown, HIVES, 01/11/22) pseudoephedrine (Verified Allergy, Unknown, Visual Hallucinations, 01/11/22) Home Meds Reported Medications Pantoprazole Sodium (Pantoprazole Sodium) 40 Mg Tablet.dr, 40 MG PO DAILY, TAB 01/11/22 Semaglutide (Ozempic) 0.25 Mg/0.2 Ml Pen.injctr, 0.5 MG SQ WEEK, EA 01/11/22 Metformin HCl (Metformin HCl ER) 500 Mg Tab.er.24, 2000 MG PO DAILY, TAB TAKES 4 (500MG) TABS 01/11/22 Meloxicam (Meloxicam) 15 Mg Tablet, 15 MG PO DAILY, TAB 01/11/22 Fluticasone Propionate (Flonase Allergy Relief) 9.9 Ml [place].susp, 2 SPRAY NSEACH DAILY, EACH 2 SPRAYS PER NOSTRIL DAILY X 2 DAYS THEN 1 SPRAY DAILY 01/11/22 Levothyroxine Sodium (Levothyroxine Sodium) 50 Mcg Tablet, 50 MCG PO DAILY, TAB 01/11/22 Cyclobenzaprine HCl (Cyclobenzaprine HCl) 10 Mg Tablet, 10 MG PO TID PRN for SPASMS, TAB 01/11/22 Cholecalciferol (Vitamin D3) (Vitamin D3) 50 Mcg Capsule, 50 MCG PO DAILY, CAP 01/11/22 Cetirizine HCl (Cetirizine HCl) 10 Mg Tablet, 10 MG PO DAILY, TAB 01/11/22 Hydrocodone/Acetaminophen (Hydrocodone-Acetamin 10-325 mg) 1 Each Tablet, 1 EACH PO Q6H PRN for PAIN-MODERATE (5-7), TAB 01/11/22 Acetaminophen (Tylenol Extra Strength) 500 Mg Tablet, 1000 MG PO Q6H PRN for PAIN-MILD (1-4), TAB 01/11/22 Objective Exam Right Ankle: Cam boot in place Vital Signs Vital Signs Date Time Temp Pulse Resp B/P (MAP) Pulse Ox O2 Delivery O2 Flow Rate FiO2 01/16/22 08:39 Room Air 01/16/22 07:20 36.5 97 16 147/85 (105) 96 Room Air 01/15/22 21:23 Room Air 01/15/22 19:31 36.6 103 19 115/74 (88) 95 Room Air Lab Results Laboratory Tests 01/16/22 05:24: White Blood Count 4.9, Red Blood Count 3.69L, Hemoglobin 10.7L, Hematocrit 34L, Mean Corpuscular Volume 93, Mean Corpuscular Hemoglobin 29, Mean Corpuscular Hemoglobin Concent 31L, Red Cell Distribution Width 15.5H, Platelet Count 294, Mean Platelet Volume 9.8, Immature Granulocyte % (Auto) 0, Neutrophils (%) (Auto) 46, Lymphocytes (%) (Auto) 26, Monocytes (%) (Auto) 16H, Eosinophils (%) (Auto) 11H, Basophils (%) (Auto) 1, Neutrophils # (Auto) 2.3, Lymphocytes # (Auto) 1.3, Monocytes # (Auto) 0.8, Eosinophils # (Auto) 0.5H, Basophils # (Auto) 0.0, Immature Granulocyte # (Auto) 0.0, Sodium Level 140, Potassium Level 3.8, Chloride Level 106, Carbon Dioxide Level 23, Anion Gap 11, Blood Urea Nitrogen 13, Creatinine 0.61, Estimat Glomerular Filtration Rate 106, BUN/Creatinine Ratio 21, Glucose Level 102, Calcium Level 8.6, Corrected Calcium 9.2, Total Bilirubin 0.5, Aspartate Amino Transf (AST/SGOT) 19, Alanine Aminotransferase (ALT/SGPT) 20, Alkaline Phosphatase 78, Total Protein 5.9L, Albumin 3.2 Imaging 2 views of right ankle pending ordered by Dr. Austin this AM Assessment and Plan Assessment Right Bimalleolar Ankle Fracture s/p ORIF Right Proximal Fibula Fracture Problem List Right Bimalleolar Ankle Fracture s/p ORIF Right Proximal Fibula Fracture Plan will review x-rays when available continue TTWB dressing changes per operating surgeon; contact their office for specifics F/U to be scheduled with Dr. Bashir/[facility] ~2 weeks from date of surgery; may be longer depending on her stay here Final Diagonsis Right Bimalleolar Ankle Fracture s/p ORIF Right Proximal Fibula Fracture Level of the visit: Level 3 ERUM NEIL MD Jan 16, 2022 09:15
--- NOTE | 2022-01-16 10:01 | Occupational Ther Daily Note ---
OT Current Status-Daily Note Subjective Pt alert, laying in bed with HOB raised when WOODALL entered. Pt agreed to therapy. No c/o pain reported. Mental Status/Objective Patient Orientation: Person, Place, Time, Situation ADL-Treatment Co-treat with PT (900-1000) due to skill of 2 clinicals required which a technical product manager could not perform in order to coordinate UE/LEs, decrease fall risk, focus on higher level balance tasks, and due to pt's limitations in strength, mobility/transfers, and safety. PT focusing on LE placement, transfers, and w/c mobility while OT focuses on ADLs, UE placement, and functional/safe balance.Pt agreed to completing sponge bath and getting dressed for the day. Pt transferred from supine to EOB with supervision. Pt cleansed UB, chest, abdomen, upper legs while seated at EOB with supervision. After set up, pt donned UB dressing. Pt required assist to thread RLE through LB dressing due to CAM boot, pt was able to thread LLE using transitional care liaison. Pt donned socks using sock aid. Pt donned footwear, required min A with tying shoelaces. Pt sit-stand from EOB to FWW with CGA. Pt SPT to bedside commode with CGA. Pt completed toileting and toilet hygiene with supervision. Pt sit-stand from commode to FWW with CGA. Pt hiked LB dressing with CGA. Pt SPT to w/c. Pt propelled self to restroom and completed oral care and basic grooming task of combing at bathroom sink while sitting in w/c independently. Therapy Code Descriptions/Definitions Functional [place] Measure: 0=Not Assessed/NA 4=Minimal Assistance 1=Total Assistance 5=Supervision or Setup 2=Maximal Assistance 6=Modified [place] 3=Moderate Assistance 7=Complete IndependenceSCALE: Activities may be completed with or without assistive devices. 1-Wzcxtjujin-smcrqcf completes the activity by him/herself with no assistance from a helper. 5-Set-up or Clean-up Assistance-helper sets up or cleans up; patient completes activity. [place] assists only prior to or following the activity. 4-Supervision or Touching Assistance-helper provides verbal cues and/or touching/steadying and/or contact guard assistance as patient completes activity. Assistance may be provided throughout the activity or intermittently. 3-Partial/Moderate Assistance-helper does LESS THAN HALF the effort. [place] lifts, holds or supports trunk or limbs, but provides less than half the effort. 2-Substantial/Maximal Assistance-helper does MORE THAN HALF the effort. [place] lifts or holds trunk or limbs and provides more than half the effort. 4-Evrhrfvyw-rbocdm does ALL the effort. Patient does none of the effort to complete the activity. Or, the assistance of 2 or more helpers is required for the patient to complete the activity. If activity was not attempted, code reason: 7-Patient Refused. 9-Not Applicable-not attempted and the patient did not perform the activity before the current illness, exacerbation or injury. 10-Not Attempted due to Environmental Limitations-(lack of equipment, weather restraints, etc.). 88-Not Attempted due to Medical Conditions or Safety Concerns. Other Treatment Pt participated in functional w/c mobility task from room to therapy to increase BUE strength and independence once discharged home. Pt was able to go snf b efore requiring assist from therapist. Once in gym, pt participated in x3 SPT from w/c to raised therapy mat for increased safety at home when transferring to hospital bed. Pt transferred from both L and R side. See PT notes for scoring. Pt completed x1 set of 10 reps of BUE exercises of shoulder flexion, elbow flexion, and shoulder abduction to increase BUE strength for improved i ndependence with ADLs. Pt propelled self backwards back to room, required 1 resting break due to fatigue. Pt SPT from w/c to chair. After session, pt sitting in chair. Call light in reach and all needs met. Education OT Patient Education: Correct positioning, Energy conservation, Exercise program, Home exercise program, Modified ADL techniques, Safety issues, Use of adapted equipment Teaching Recipient: Patient Teaching Methods: Demonstration, Discussion Response to Teaching: Verbalize Understanding, Return Demonstration OT Short Term Goals Short Term Goals Time Frame: Jan 18, 2022 Eatin Oral hygiene: 5 Toileting hygiene: 2 Shower/bathe self: 3 Upper body dressin Lower body dressin Putting on/taking off footwear: 2 OT Health Tech Goals Health Tech Goals Time Frame: January 30, 2022 Eating (QC): 6 Oral Hygiene (QC): 6 Toileting Hygiene (QC): 6 Shower/Bathe Self (QC): 5 Upper Body Dressing (QC): 5 Lower Body Dressing (QC): 5 On/Off Footwear (QC): 5 1=Demonstrate adherence to instructed precautions during ADL tasks. 2=Patient will verbalize/demonstrate understanding of assistive devices/modifications for ADL. 3=Patient will improve strength/tolerance for activity to enable patient to perform ADL's. OT Education/Plan Problem List/Assessment Assessment: Decreased Activ Tolerance, Decreased UE Strength, Impaired Funct Balance, Impaired I ADL's, Impaired Self-Care Skills Discharge Recommendations Plan/Recommendations: Continue POC Treatment Plan/Plan of Care Patient would benefit from OT for education, treatment and training to promote independence in ADL's, mobility, safety and/or upper extremity function for ADL's. Plan of Care: ADL Retraining, Functional Mobility, Group Exercise/Act as Ind, Orthotic Fitting/Training, UE Funct Exercise/Act, W/C Management Training Treatment Duration: January 30, 2022 Frequency: At least 5 of 7 days/Wk (IRF) Estimated Hrs Per Day: 1.5 hours per day Rehab Potential: Fair Time/GCodes Start Time: 08:30 Stop Time: 10:00 Total Time Billed (hr/min): 90 Billed Treatment Time 1 visit- ADL 2 (30 mins) FA 2 (49 mins) EX 1 (11 mins) Co treat (900-1000) Individual (267-900) GAYATRI MAR Jan 16, 2022 10:01
[2022-01-16] MEDS: ACETAMINOPHEN 500 MG TAB (TYLENOL) PO PRN ×2 (10:03→15:37)
[2022-01-16] MEDS: LACTOBACILLUS ACIDOPHILUS (PROBIOTIC) CAPSULE PO SCH ×3 (10:03→18:08)
--- NOTE | 2022-01-16 10:10 | Physical Therapy Daily Note ---
PT Daily Note-Current Subjective Pt. describes home situation and states she plans to get a hosp bed at home to put in her living area for better clearance. Pt. requests her boot be loosened a bit as it feels tight. Pain Location: No Pain Reported Mental Status Patient Orientation: Normal For Age Attachments: Other-See Comments (boot on right foot) Transfers SCALE: Activities may be completed with or without assistive devices. 7-Mlshruclyc-xcwgogw completes the activity by him/herself with no assistance from a helper. 5-Set-up or Clean-up Assistance-helper sets up or cleans up; patient completes activity. [place] assists only prior to or following the activity. 4-Supervision or Touching Assistance-helper provides verbal cues and/or touching/steadying and/or contact guard assistance as patient completes activity. Assistance may be provided throughout the activity or intermittently. 3-Partial/Moderate Assistance-helper does LESS THAN HALF the effort. [place] lifts, holds or supports trunk or limbs, but provides less than half the effort. 2-Substantial/Maximal Assistance-helper does MORE THAN HALF the effort. [place] lifts or holds trunk or limbs and provides more than half the effort. 7-Bopyptrew-vybcig does ALL the effort. Patient does none of the effort to complete the activity. Or, the assistance of 2 or more helpers is required for the patient to complete the activity. If activity was not attempted, code reason: 7-Patient Refused. 9-Not Applicable-not attempted and the patient did not perform the activity before the current illness, exacerbation or injury. 10-Not Attempted due to Environmental Limitations-(lack of equipment, weather restraints, etc.). 88-Not Attempted due to Medical Conditions or Safety Concerns. Roll Left & Right (QC): 6 Sit to Lying (QC): 6 Lying to Sitting/Side of Bed(Q: 6 Sit to Stand (QC): 4 Chair/Quz-wo-Zjiwu Xfer(QC): 4 Weight Bearing Right Lower Extremity: Right Touch Toe Bearing Full Weight Bearing Wheelchair Training Does the Pt Use a Wheelchair?: Yes Wheel 50 ft with 2 turns (QC): 6 Wheel 150 ft (QC): 6 Type of Wheelchair: Manual fatigues, needs rest breaks Exercises Supine Ex: Ankle pumps, Quad Set, Rolling, Glut sets, Heel Slides, Straight leg raise, Hip abd/add Supine Reps: 15 Seated Therapy Exercises: Sit to stand Seated Reps: 10 Treatments PT OT co Rx secondary to need for 2 skilled clinicians for coordination of U&L ext ADLs and TRFs. height of wc seat was raised which greatly improved sit to stand frm w/c, arms of w.c were turned so high end toward front , also helped with indep in sit to stand, SPTs w/c to bed and w/c to chair in room. TRS toward L and R with FWW , pt doing her best to remain TTWB, managed with CGA Assessment Current Status: Good Progress PT Short Term Goals Short Term Goals Time Frame: Jan 18, 2022 Roll Left & Right: 6 Sit to lyin Lying to sitting on side of be: 4 Sit to stand: 3 Chair/ful-dc-oofkg transfer: 4 Wheel 50ft w/2 turns: 3 PT Penitentiary Goals Penitentiary Goals PT Penitentiary Goals Time Frame: February 01, 2022 Roll Left & Right (QC): 6 Sit to Lying (QC): 3 (Brianna) Lying-Sitting on Side/Bed(QC): 6 Sit to Stand (QC): 4 (CGA) Chair/Llr-ju-Rxlue Xfer(QC): 4 (SBA) Toilet Transfer (QC): 4 (SBA) Car Transfer (QC): 3 (Brianna) Does the Patient Walk: Yes Walk 10 feet (QC): 4 (CGA) Walk 50ft with 2 Turns (QC): 88 Walk 150 ft (QC): 88 Walking 10ft on Uneven Surface: 88 1 Step (curb) (QC): 88 4 Steps (QC): 88 12 Steps (QC): 88 Picking up an Object (QC): 4 (using electronic publishing specialist) Wheel 50 feet with 2 turns (QC: 4 Wheel 150 feet: 4 PT Plan Treatment/Plan Treatment Plan: Continue Plan of Care Treatment Plan: Bed Mobility, Education, Functional Activity Yadi, Functional Strength, Group Therapy, Gait, Safety, Therapeutic Exercise, Transfers Treatment Duration: February 01, 2022 Frequency: At least 5 of 7 days/Wk (IRF) Estimated Hrs Per Day: 1.5 hours per day Patient and/or Family Agrees t: Yes Safety Risks/Education Patient Education: Transfer Techniques, Correct Positioning, W/C Management, Disease Process, Safety Issues Teaching Recipient: Patient, Primary Caregiver Teaching Methods: Discussion Response to Teaching: Verbalize Understanding, Return Demonstration, R einforcement Needed Time/GCodes Time In: 900 Time Out: 1000 Total Billed Treatment Time: 60 Total Billed Treatment 1,EX15m,WC15m,FA30m (co Rx 60m) MARTIN GONZALEZ STRESS ANALYST Jan 16, 2022 10:10
--- NOTE | 2022-01-16 10:49 | Diagnostic Imaging Report ---
INDICATION: Follow-up right ankle fracture. TIME OF EXAM: 10:08 AM No prior studies available for comparison. FINDINGS: 2 views right ankle demonstrate lateral plate and screws transfixing distal fibula. There are 2 partially threaded screws transfix the medial malleolus. There appears to be a syndesmotic screw, however there is interruption in the midportion of the syndesmotic screw. Ankle mortise is maintained. Talar dome is smooth. There are lateral and medial skin gregory noted. IMPRESSION: Postoperative changes to the right ankle, as described. Dictated by: Dictated on workstation # [id number]
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
--- NOTE | 2022-01-16 12:08 | Physical Therapy Daily Note ---
PT Daily Note-Current Subjective Pt. agrees to Rx, wants to trial w/c skills on ramp , pt. has ramp at home. Pain Location: No Pain Reported Mental Status Patient Orientation: Normal For Age Attachments: Other-See Comments (boot) Transfers SCALE: Activities may be completed with or without assistive devices. 6-Otjcdpvaad-osclary completes the activity by him/herself with no assistance from a helper. 5-Set-up or Clean-up Assistance-helper sets up or cleans up; patient completes activity. [place] assists only prior to or following the activity. 4-Supervision or Touching Assistance-helper provides verbal cues and/or touching/steadying and/or contact guard assistance as patient completes activity. Assistance may be provided throughout the activity or intermittently. 3-Partial/Moderate Assistance-helper does LESS THAN HALF the effort. [place] lifts, holds or supports trunk or limbs, but provides less than half the effort. 2-Substantial/Maximal Assistance-helper does MORE THAN HALF the effort. [place] lifts or holds trunk or limbs and provides more than half the effort. 3-Vffqapnwk-pnltky does ALL the effort. Patient does none of the effort to complete the activity. Or, the assistance of 2 or more helpers is required for the patient to complete the activity. If activity was not attempted, code reason: 7-Patient Refused. 9-Not Applicable-not attempted and the patient did not perform the activity before the current illness, exacerbation or injury. 10-Not Attempted due to Environmental Limitations-(lack of equipment, weather restraints, etc.). 88-Not Attempted due to Medical Conditions or Safety Concerns. sit to stands from w/c with cushioning for added height SBA, SPT w/c to bed and w/c to BSC all CGA to SBA using FWW, TTWBing maintained Weight Bearing Right Lower Extremity: Right Touch Toe Bearing Full Weight Bearing Wheelchair Training Does the Pt Use a Wheelchair?: Yes Wheel 50 ft with 2 turns (QC): 6 Wheel 150 ft (QC): 6 Type of Wheelchair: Manual forward up ramp very difficult aprox 35ft, up backwards 45 ft with good steering indep, down ramp with good control 50 ft, on flat surfaces Mod i but slow Treatments toileted on BSC managing clothing up down and clean up SBA, TRFd in to bed after Rx, with min to mod assist RLE into bed. call harris at hand Assessment Current Status: Good Progress PT Short Term Goals Short Term Goals Time Frame: Jan 18, 2022 Roll Left & Right: 6 Sit to lyin Lying to sitting on side of be: 4 Sit to stand: 3 Chair/fsz-xb-fqdmj transfer: 4 Wheel 50ft w/2 turns: 3 PT Skilled Nursing Goals Rescue Worker Goals PT Rescue Worker Goals Time Frame: February 01, 2022 Roll Left & Right (QC): 6 Sit to Lying (QC): 3 (Brianna) Lying-Sitting on Side/Bed(QC): 6 Sit to Stand (QC): 4 (CGA) Chair/Ewc-zy-Bmebf Xfer(QC): 4 (SBA) Toilet Transfer (QC): 4 (SBA) Car Transfer (QC): 3 (Brianna) Does the Patient Walk: Yes Walk 10 feet (QC): 4 (CGA) Walk 50ft with 2 Turns (QC): 88 Walk 150 ft (QC): 88 Walking 10ft on Uneven Surface: 88 1 Step (curb) (QC): 88 4 Steps (QC): 88 12 Steps (QC): 88 Picking up an Object (QC): 4 (using lan engineer) Wheel 50 feet with 2 turns (QC: 4 Wheel 150 feet: 4 PT Plan Treatment/Plan Treatment Plan: Continue Plan of Care Treatment Plan: Bed Mobility, Education, Functional Activity Yadi, Functional Strength, Group Therapy, Gait, Safety, Therapeutic Exercise, Transfers Treatment Duration: February 01, 2022 Frequency: At least 5 of 7 days/Wk (IRF) Estimated Hrs Per Day: 1.5 hours per day Patient and/or Family Agrees t: Yes Safety Risks/Education Patient Education: Transfer Techniques, Correct Positioning, W/C Management, Safety Issues Teaching Recipient: Patient Teaching Methods: Demonstration, Discussion Response to Teaching: Verbalize Understanding, Return Demonstration, Reinforcement Needed Time/GCodes Time In: 1130 Time Out: 1135 Total Billed Treatment Time: 35 Total Billed Treatment 1,WC20m,FA15m MARTIN GONZALEZ MANUFACTURING PROJECT MANAGER Jan 16, 2022 12:08
[2022-01-16] MEDS: RIVAROXABAN 10 MG TABLET (XARELTO) PO SCH (18:08)
[2022-01-16 19:53] VITALS: BP 114/81
[2022-01-16] MEDS: MELATONIN 3 MG TABLET PO SCH (21:19)
[2022-01-16] MEDS: ALPRAZolam 0.5 MG (XANAX) TAB PO SCH (21:19)
[2022-01-17] MEDS: LEVOTHYROXINE 50 MCG (LEVOTHROID) TAB PO SCH (06:07)
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
[2022-01-17 08:00] VITALS: BP 129/78
[2022-01-17] MEDS: VITAMIN D3 25 MCG (1,000 UNITS) TABLET PO SCH (09:08)
[2022-01-17] MEDS: DOCUSATE SODIUM 100 MG (COLACE) CAP PO SCH ×2 (09:08→21:46)
[2022-01-17] MEDS: PANTOPRAZOLE 40 MG (PROTONIX) TAB PO SCH (09:09)
[2022-01-17] MEDS: MELOXICAM 7.5 MG (MOBIC) TABLET PO SCH (09:09)
[2022-01-17] MEDS: metFORMIN XR 500 MG (GLUCOPHAGE XR) TAB PO SCH (09:09)
[2022-01-17] MEDS: LACTOBACILLUS ACIDOPHILUS (PROBIOTIC) CAPSULE PO SCH ×3 (09:10→17:42)
[2022-01-17] MEDS: LORATADINE (CLARITIN) 10 MG TAB PO SCH (09:10)
[2022-01-17] MEDS: polyethylene glycoL POWDER 17 GM (MIRALAX) PACK PO SCH ×2 (09:13→21:46)
[2022-01-17] MEDS: MICONAZOLE 2% POWDER (DESENEX AF) 90 GM TOP SCH ×2 (09:13→21:43)
[2022-01-17] MEDS: SENNA W/DOCUSATE (SENOKOT S) TABLET PO SCH ×2 (09:13→21:46)
--- NOTE | 2022-01-17 09:35 | Occupational Ther Daily Note ---
OT Current Status-Daily Note Subjective Pt alert, laying in bed with HOB raised when WOODALL entered room. Pt agreed to therapy. No c/o pain reported. Mental Status/Objective Patient Orientation: Person, Place, Time, Situation ADL-Treatment Co-treat with PT ([id number]) due to skill of 2 clinicals required which a rehab care assistant could not perform in order to coordinate UE/LEs, decrease fall risk, focus on higher level balance tasks, and due to pt's limitations in strength, mobility/transfers, and safety. PT focusing on LE placement, transfers, and w/c mobility while OT focuses on ADLs, UE placement, and functional/safe balancePt agreed to complete shower today. Pt transferred from supine to EOB with supervision. Pt sit-stand from EOB to FWW and SPT to w/c with CGA. Pt transported to shower room. Pt sit-stand from w/c using grab bars and then sat in shower chair. Pt doffed socks using dressing stick and hospital gown while seated in shower chain. Pt performed shower and was able to cleanse/dry UB, chest, abdomen, eleuterio area and upper legs. Pt required assist to cleanse lower legs and buttocks while in standing. Post shower, pt sit-stand and sat in w/c. After set up, pt donned UB dressing. Pt able to thread BLE through LB dressing using central processing tech, required min A to thread R LE due to R CAM boot. Pt donned L sock using sock aid. Pt was able to don L footwear, required assist with tying shoe laces. Pt propelled self backwards back to room. Once in room, pt completed oral hygiene and basic grooming task of brushing hair while seated in w/c independently. Therapy Code Descriptions/Definitions Functional [place] Measure: 0=Not Assessed/NA 4=Minimal Assistance 1=Total Assistance 5=Supervision or Setup 2=Maximal Assistance 6=Modified [place] 3=Moderate Assistance 7=Complete IndependenceSCALE: Activities may be completed with or without assistive devices. 0-Ojrhlbtejk-mmdwbmm completes the activity by him/herself with no assistance from a helper. 5-Set-up or Clean-up Assistance-helper sets up or cleans up; patient completes activity. [place] assists only prior to or following the activity. 4-Supervision or Touching Assistance-helper provides verbal cues and/or touching/steadying and/or contact guard assistance as patient completes activity. Assistance may be provided throughout the activity or intermittently. 3-Partial/Moderate Assistance-helper does LESS THAN HALF the effort. [place] lifts, holds or supports trunk or limbs, but provides less than half the effort. 2-Substantial/Maximal Assistance-helper does MORE THAN HALF the effort. [place] lifts or holds trunk or limbs and provides more than half the effort. 6-Sixmlpmcc-ltmirj does ALL the effort. Patient does none of the effort to complete the activity. Or, the assistance of 2 or more helpers is required for the patient to complete the activity. If activity was not attempted, code reason: 7-Patient Refused. 9-Not Applicable-not attempted and the patient did not perform the activity before the current illness, exacerbation or injury. 10-Not Attempted due to Environmental Limitations-(lack of equipment, weather restraints, etc.). 88-Not Attempted due to Medical Conditions or Safety Concerns. Oral Hygiene (QC): 6 Bathing Location: L Arm, R Arm, L Upper Leg, R Upper Leg, Chest, Abdomen Shower/Bathe Self (QC): 3 (assist to cleanse L lower leg and buttocks.) Upper Body Dressing (QC): 5 Lower Body Dressing (QC): 3 (Min A to thread R LB thrrough R LE) On/Off Footwear: 3 Other Treatment Pt participated in functional w/c mobility task from room to therapy gym to increase BUE strength and improve independence and safety once discharged home. Pt required resting break due to decreased activity tolerance. Once in therapy gym, pt participated in functional/safe stimulated car transfer from w/c to raised therapy mat for increased independence once discharged. See Pt notes for scoring. Pt demonstrated good safety awareness when completing task. Post session, pt left with PT in therapy gym, finishing treatment. All needs met. 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 2=Patient will verbalize/demonstrate understanding of assistive devices/modifications for ADL. 3=Patient will improve strength/tolerance for activity to enable patient to perform ADL's. OT Education/Plan Problem List/Assessment Assessment: Decreased Activ Tolerance, Decreased UE Strength, Impaired I ADL's, Impaired Self-Care Skills Discharge Recommendations Plan/Recommendations: Continue POC Treatment Plan/Plan of Care Patient would benefit from OT for education, treatment and training to promote independence in ADL's, mobility, safety and/or upper extremity function for ADL's. Plan of Care: ADL Retraining, Functional Mobility, Group Exercise/Act as Ind, Orthotic Fitting/Training, UE Funct Exercise/Act, W/C Management Training Treatment Duration: January 30, 2022 Frequency: At least 5 of 7 days/Wk (IRF) Estimated Hrs Per Day: 1.5 hours per day Rehab Potential: Fair Time/GCodes Start Time: 08:00 Stop Time: 09:30 Total Time Billed (hr/min): 90 Billed Treatment Time 1 visit- ADL 4(63 mins) FA 2 (27 mins) Co-treat(900-930) Individual (800-900) GAYATRI MAR Jan 17, 2022 09:35
[2022-01-17] MEDS ORDERED: SALIVA STIMULANT MOUTH SPRAY (BIOTENE) 1.5 OZ MM PRN (10:00)
--- NOTE | 2022-01-17 10:00 | Physical Therapy Daily Note ---
PT Daily Note-Current Subjective Pt. agrees to Rx. States the only thing she is still struggling with in her opinion is cleansing well after urination. No pain, does c/o fatigue with activity Pain Location: No Pain Reported Mental Status Patient Orientation: Normal For Age Attachments: Other-See Comments (boot) Transfers SCALE: Activities may be completed with or without assistive devices. 3-Wfihautvhr-eruuiwq completes the activity by him/herself with no assistance from a helper. 5-Set-up or Clean-up Assistance-helper sets up or cleans up; patient completes activity. [place] assists only prior to or following the activity. 4-Supervision or Touching Assistance-helper provides verbal cues and/or touching/steadying and/or contact guard assistance as patient completes activity. Assistance may be provided throughout the activity or intermittently. 3-Partial/Moderate Assistance-helper does LESS THAN HALF the effort. [place] lifts, holds or supports trunk or limbs, but provides less than half the effort. 2-Substantial/Maximal Assistance-helper does MORE THAN HALF the effort. [place] lifts or holds trunk or limbs and provides more than half the effort. 8-Wdcoljrpc-qgxvmg does ALL the effort. Patient does none of the effort to complete the activity. Or, the assistance of 2 or more helpers is required for the patient to complete the activity. If activity was not attempted, code reason: 7-Patient Refused. 9-Not Applicable-not attempted and the patient did not perform the activity before the current illness, exacerbation or injury. 10-Not Attempted due to Environmental Limitations-(lack of equipment, weather restraints, etc.). 88-Not Attempted due to Medical Conditions or Safety Concerns. Roll Left & Right (QC): 6 Sit to Stand (QC): 6 Chair/Qqa-cv-[place] Xfer(QC): 6 Car Transfer (QC): 4 simulated car TRF today using high low table and step platforms etc, required CGA only Weight Bearing Right Lower Extremity: Right Touch Toe Bearing Full Weight Bearing Gait Training Does the Patient Walk?: Yes Walk 10 feet (QC): 4 Gait Persons Needed: 1 Gait Assistive Device: FWW CGA, w/c to follow, maintains TTWBing, heavy wt bearing on FWW Wheelchair Training Does the Pt Use a Wheelchair?: Yes Wheel 50 ft with 2 turns (QC): 6 Exercises NuStep Minutes: 5 NuStep Workload: 1 Treatments w/c, TRFs , gait , Nustep Assessment all activities are fatiguing for pt. but she gives full effort and is determined PT Short Term Goals Short Term Goals Time Frame: Jan 18, 2022 Roll Left & Right: 6 Sit to lyin Lying to sitting on side of be: 4 Sit to stand: 3 Chair/mdo-db-uucig transfer: 4 Wheel 50ft w/2 turns: 3 PT Retirement Goals Retirement Goals PT Net Sql Developer Goals Time Frame: February 01, 2022 Roll Left & Right (QC): 6 Sit to Lying (QC): 3 (Brianna) Lying-Sitting on Side/Bed(QC): 6 Sit to Stand (QC): 4 (CGA) Chair/Vuz-wz-Klmkq Xfer(QC): 4 (SBA) Toilet Transfer (QC): 4 (SBA) Car Transfer (QC): 3 (Brianna) Does the Patient Walk: Yes Walk 10 feet (QC): 4 (CGA) Walk 50ft with 2 Turns (QC): 88 Walk 150 ft (QC): 88 Walking 10ft on Uneven Surface: 88 1 Step (curb) (QC): 88 4 Steps (QC): 88 12 Steps (QC): 88 Picking up an Object (QC): 4 (using director family) Wheel 50 feet with 2 turns (QC: 4 Wheel 150 feet: 4 PT Plan Treatment/Plan Treatment Plan: Continue Plan of Care Treatment Plan: Bed Mobility, Education, Functional Activity Yadi, Functional Strength, Group Therapy, Gait, Safety, Therapeutic Exercise, Transfers Treatment Duration: February 01, 2022 Frequency: At least 5 of 7 days/Wk (IRF) Estimated Hrs Per Day: 1.5 hours per day Patient and/or Family Agrees t: Yes Safety Risks/Education Patient Education: Gait Training, Transfer Techniques, Correct Positioning, W/C Management, Disease Process, Safety Issues Teaching Recipient: Patient Teaching Methods: Demonstration, Discussion Response to Teaching: Verbalize Understanding, Return Demonstration, Reinforcement Needed Time/GCodes Time In: 900 Time Out: 1000 Total Billed Treatment Time: 60 Total Billed Treatment 1,WC15m,FA35m,EX10m MARTIN GONZALEZ WEAPONS SYSTEM INSTRUMENT MECHANIC Jan 17, 2022 10:00
[2022-01-17] MEDS: ACETAMINOPHEN 500 MG TAB (TYLENOL) PO PRN (10:39)
--- NOTE | 2022-01-17 13:28 | Physical Therapy Daily Note ---
PT Daily Note-Current Subjective Pt. agrees to Rx, wants to ex and toilet and get up in to chair after Pain Location: No Pain Reported Mental Status Patient Orientation: Normal For Age Transfers SCALE: Activities may be completed with or without assistive devices. 5-Pkhutqzfix-evutczo completes the activity by him/herself with no assistance from a helper. 5-Set-up or Clean-up Assistance-helper sets up or cleans up; patient completes activity. [place] assists only prior to or following the activity. 4-Supervision or Touching Assistance-helper provides verbal cues and/or touching/steadying and/or contact guard assistance as patient completes activity. Assistance may be provided throughout the activity or intermittently. 3-Partial/Moderate Assistance-helper does LESS THAN HALF the effort. [place] lifts, holds or supports trunk or limbs, but provides less than half the effort. 2-Substantial/Maximal Assistance-helper does MORE THAN HALF the effort. [place] lifts or holds trunk or limbs and provides more than half the effort. 8-Gfmavslbe-atolfm does ALL the effort. Patient does none of the effort to complete the activity. Or, the assistance of 2 or more helpers is required for the patient to complete the activity. If activity was not attempted, code reason: 7-Patient Refused. 9-Not Applicable-not attempted and the patient did not perform the activity befo re the current illness, exacerbation or injury. 10-Not Attempted due to Environmental Limitations-(lack of equipment, weather re straints, etc.). 88-Not Attempted due to Medical Conditions or Safety Concerns. TRF sup to sit, SPT bed to BSC all SBA Weight Bearing Right Lower Extremity: Right Touch Toe Bearing Full Weight Bearing Exercises Supine Ex: Ankle pumps, Quad Set, Rolling, Glut sets, Heel Slides, Short Arc Quads, Scooting, Straight leg raise (assisted), Hip abd/add Supine Reps: 20 Assessment Current Status: Good Progress progress noted in all phases of Rx. increased indep PT Short Term Goals Short Term Goals Time Frame: Jan 18, 2022 Roll Left & Right: 6 Sit to lyin Lying to sitting on side of be: 4 Sit to stand: 3 Chair/ysg-fw-sgneq transfer: 4 Wheel 50ft w/2 turns: 3 PT Legal Researcher Goals Legal Researcher Goals PT Legal Researcher Goals Time Frame: February 01, 2022 Roll Left & Right (QC): 6 Sit to Lying (QC): 3 (Brianna) Lying-Sitting on Side/Bed(QC): 6 Sit to Stand (QC): 4 (CGA) Chair/Zpb-xx-Binkt Xfer(QC): 4 (SBA) Toilet Transfer (QC): 4 (SBA) Car Transfer (QC): 3 (Brianna) Does the Patient Walk: Yes Walk 10 feet (QC): 4 (CGA) Walk 50ft with 2 Turns (QC): 88 Walk 150 ft (QC): 88 Walking 10ft on Uneven Surface: 88 1 Step (curb) (QC): 88 4 Steps (QC): 88 12 Steps (QC): 88 Picking up an Object (QC): 4 (using inspector aligning) Wheel 50 feet with 2 turns (QC: 4 Wheel 150 feet: 4 PT Plan Treatment/Plan Treatment Plan: Continue Plan of Care Treatment Plan: Bed Mobility, Education, Functional Activity Yadi, Functional Strength, Group Therapy, Gait, Safety, Therapeutic Exercise, Transfers Treatment Duration: February 01, 2022 Frequency: At least 5 of 7 days/Wk (IRF) Estimated Hrs Per Day: 1.5 hours per day Patient and/or Family Agrees t: Yes Safety Risks/Education Patient Education: Transfer Techniques, Correct Positioning Time/GCodes Time In: 1300 Time Out: 1330 Total Billed Treatment Time: 30 Total Billed Treatment 1,FA10m,EX20m MARTIN GONZALEZ AUTO BODY MAN Jan 17, 2022 13:28
[2022-01-17] MEDS: RIVAROXABAN 10 MG TABLET (XARELTO) PO SCH (17:42)
[2022-01-17 20:34] VITALS: BP 114/75
[2022-01-17] MEDS: ALPRAZolam 0.5 MG (XANAX) TAB PO SCH (21:42)
[2022-01-17] MEDS: MELATONIN 3 MG TABLET PO SCH (21:42)
[2022-01-18] MEDS: ACETAMINOPHEN 500 MG TAB (TYLENOL) PO PRN ×3 (03:28→18:30)
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
[2022-01-18] MEDS: LEVOTHYROXINE 50 MCG (LEVOTHROID) TAB PO SCH (06:48)
[2022-01-18 08:00] VITALS: BP 138/75
--- NOTE | 2022-01-18 09:00 | Occupational Ther Daily Note ---
OT Current Status-Daily Note Subjective Pt alert, sitting in recliner at bathroom when WOODALL entered. Pt stated she is already dressed for the day. No c/o pain reported. Mental Status/Objective Patient Orientation: Person, Place, Time, Situation ADL-Treatment Pt sitting in w/c at bathroom sink completing oral care and basic grooming task of combing hair independently. Once back in room, pt requested to work on functional/safe transfers from bedside commode to EOB then supine due to pt having difficulty swinging R leg onto bed. When placing a stool at surface of bed, pt is able to swing R leg onto bed independently. Pt then stated she needed to use the restroom. Pt transferred from supine to EOB with supervision. Pt sit- stand from EOB to FWW with CGA. SPT to bedside commode with CGA. Pt completed t oileting and required tongs to complete toilet hygiene with supervision and vc for correct completion. Pt then SPT from commode to w/c with CGA. After session, pt sitting in w/c. All needs met and call light in reach. Therapy Code Descriptions/Definitions Functional [place] Measure: 0=Not Assessed/NA 4=Minimal Assistance 1=Total Assistance 5=Supervision or Setup 2=Maximal Assistance 6=Modified [place] 3=Moderate Assistance 7=Complete IndependenceSCALE: Activities may be completed with or without assistive devices. 1-Juyaqysupm-soupido completes the activity by him/herself with no assistance from a helper. 5-Set-up or Clean-up Assistance-helper sets up or cleans up; patient completes activity. [place] assists only prior to or following the activity. 4-Supervision or Touching Assistance-helper provides verbal cues and/or touching/steadying and/or contact guard assistance as patient completes activi ty. Assistance may be provided throughout the activity or intermittently. 3-Partial/Moderate Assistance-helper does LESS THAN HALF the effort. [place] lifts, holds or supports trunk or limbs, but provides less than half the effort. 2-Substantial/Maximal Assistance-helper does MORE THAN HALF the effort. [place] lifts or holds trunk or limbs and provides more than half the effort. 5-Qdawxcssh-aybqqc does ALL the effort. Patient does none of the effort to complete the activity. Or, the assistance of 2 or more helpers is required for the patient to complete the activity. If activity was not attempted, code reason: 7-Patient Refused. 9-Not Applicable-not attempted and the patient did not perform the activity before the current illness, exacerbation or injury. 10-Not Attempted due to Environmental Limitations-(lack of equipment, weather restraints, etc.). 88-Not Attempted due to Medical Conditions or Safety Concerns. Oral Hygiene (QC): 6 Toileting Hygiene (QC): 4 Toilet Transfer (QC): 4 Other Treatment Pt propelled self in w/c throughout [facility] to locate cope bags and pick them up using import and export clerk to increase visual scanning skills, BUE strength, and dynamic sitting balance. Pt required multiple resting breaks due to decreased activity tolerance. Pt was able to locate all 10/10 cope bags independently. Pt then propelled self to therapy gym. Pt required skilled instruction of 3lb BUE exercises for correct completion. Pt completed x2 sets of 10 reps of 3lb BUE exercises of shoulder flexion, shoulder extension, shoulder abduction/adduction, chest press, elbow flexion, and wrist flexion to increase BUE strength for improved independence with ADLs. Pt demonstrated good technique and required 1 resting break due to fatigue. Pt propelled self back to room. Education OT Patient Education: Correct positioning, Energy conservation, Exercise program, Home exercise program, Modified ADL techniques, Safety issues, Transfer techniques, Use of adapted equipment Teaching Recipient: Patient Teaching Methods: Demonstration, Discussion Response to Teaching: Verbalize Understanding, Return Demonstration OT Short Term Goals Short Term Goals Time Frame: Jan 18, 2022 Eatin Oral hygiene: 5 Toileting hygiene: 2 Shower/bathe self: 3 Upper body dressin Lower body dressin Putting on/taking off footwear: 2 OT Waiter/Waitress Bar Goals Waiter/Waitress Bar Goals Time Frame: January 30, 2022 Eating (QC): 6 Oral Hygiene (QC): 6 Toileting Hygiene (QC): 6 Shower/Bathe Self (QC): 5 Upper Body Dressing (QC): 5 Lower Body Dressing (QC): 5 On/Off Footwear (QC): 5 1=Demonstrate adherence to instructed precautions during ADL tasks. 2=Patient will verbalize/demonstrate understanding of assistive devices/modifications for ADL. 3=Patient will improve strength/tolerance for activity to enable patient to perform ADL's. OT Education/Plan Problem List/Assessment Assessment: Decreased Activ Tolerance, Decreased UE Strength, Impaired I ADL's, Impaired Self-Care Skills Discharge Recommendations Plan/Recommendations: Continue POC Treatment Plan/Plan of Care Patient would benefit from OT for education, treatment and training to promote independence in ADL's, mobility, safety and/or upper extremity function for ADL's. Plan of Care: ADL Retraining, Functional Mobility, Group Exercise/Act as Ind, Orthotic Fitting/Training, UE Funct Exercise/Act, W/C Management Training Treatment Duration: January 30, 2022 Frequency: At least 5 of 7 days/Wk (IRF) Estimated Hrs Per Day: 1.5 hours per day Rehab Potential: Fair Time/GCodes Start Time: 08:00 Stop Time: 09:00 Total Time Billed (hr/min): 60 Billed Treatment Time 1 visit- FA 3 (42 mins) ADL 1 (18 mins) GAYATRI MAR Jan 18, 2022 09:00
[2022-01-18] MEDS: LACTOBACILLUS ACIDOPHILUS (PROBIOTIC) CAPSULE PO SCH ×3 (09:07→17:25)
[2022-01-18] MEDS: metFORMIN XR 500 MG (GLUCOPHAGE XR) TAB PO SCH (09:07)
[2022-01-18] MEDS: VITAMIN D3 25 MCG (1,000 UNITS) TABLET PO SCH (09:07)
[2022-01-18] MEDS: PANTOPRAZOLE 40 MG (PROTONIX) TAB PO SCH (09:08)
[2022-01-18] MEDS: MELOXICAM 7.5 MG (MOBIC) TABLET PO SCH (09:08)
[2022-01-18] MEDS: LORATADINE (CLARITIN) 10 MG TAB PO SCH (09:08)
[2022-01-18] MEDS: DOCUSATE SODIUM 100 MG (COLACE) CAP PO SCH ×2 (09:11→21:50)
[2022-01-18] MEDS: SENNA W/DOCUSATE (SENOKOT S) TABLET PO SCH ×2 (09:11→21:53)
[2022-01-18] MEDS: polyethylene glycoL POWDER 17 GM (MIRALAX) PACK PO SCH ×2 (09:11→21:53)
[2022-01-18] MEDS: MICONAZOLE 2% POWDER (DESENEX AF) 90 GM TOP SCH ×2 (09:12→21:53)
[2022-01-18] MEDS: HYDROCORTISONE 1% CREAM 30 GM TUBE TOP SCH ×2 (10:03→21:53)
--- NOTE | 2022-01-18 10:07 | Physical Therapy Daily Note ---
PT Daily Note-Current Subjective Pt. agrees to Rx, states she is getting a hospital bed for home if insurance agrees to pay. This [employer]UM[employer]S LEAD [employer] MARKETING called the [facility] pt plans to use to find out bed height so that we might practice TRFs at a consistent level . [facility] states bed will go down to 18 and up very high. Pt. shares that she has been seeing a specialist for wt loss , had lost 37lbs before she came in here and would like to weigh today . Pts weight in w/c 483.7 minus wt of w/c taken while pt. was out of it 63.8 = 419.9 .Pt. states she has lost 20 more pounds since her admission. Pain Numeric Pain Scale: 4 Location: Left Location Body Site: Calf Pain Description: Acute Appearance posterior left distal calf with what appears to be a varicosity, Pt. c/o pain in this area, lotion applied to the skin as per Dr Austin suggestion when she rounded. Will alert pts nurse to this Mental Status Patient Orientation: Normal For Age Attachments: Other-See Comments (boot right LE) Transfers SCALE: Activities may be completed with or without assistive devices. 7-Quehrtxlwt-ffjvalj completes the activity by him/herself with no assistance from a helper. 5-Set-up or Clean-up Assistance-helper sets up or cleans up; patient completes activity. [place] assists only prior to or following the activity. 4-Supervision or Touching Assistance-helper provides verbal cues and/or touching/steadying and/or contact guard assistance as patient completes activity. Assistance may be provided throughout the activity or intermittently. 3-Partial/Moderate Assistance-helper does LESS THAN HALF the effort. [place] lifts, holds or supports trunk or limbs, but provides less than half the effort. 2-Substantial/Maximal Assistance-helper does MORE THAN HALF the effort. [place] lifts or holds trunk or limbs and provides more than half the effort. 3-Yuitweuay-laaudu does ALL the effort. Patient does none of the effort to co mplete the activity. Or, the assistance of 2 or more helpers is required for the patient to complete the activity. If activity was not attempted, code reason: 7-Patient Refused. 9-Not Applicable-not attempted and the patient did not perform the activity before the current illness, exacerbation or injury. 10-Not Attempted due to Environmental Limitations-(lack of equipment, weather restraints, etc.). 88-Not Attempted due to Medical Conditions or Safety Concerns. Roll Left & Right (QC): 6 Sit to Lying (QC): 6 Lying to Sitting/Side of Bed(Q: 6 Sit to Stand (QC): 6 Chair/Efe-oy-Ahyvd Xfer(QC): 6 Toilet Transfer (QC): 6 Weight Bearing Right Lower Extremity: Right Touch Toe Bearing Full Weight Bearing Gait Training Does the Patient Walk?: Yes Walk 10 feet (QC): 4 Gait Persons Needed: 1 Gait Assistive Device: FWW TTWB maintained but pt. fatigues and is not able to maintain this status well aftr approx 10 ft. This distance allows te distance she will need at home for functioning Wheelchair Training Does the Pt Use a Wheelchair?: Yes Wheel 50 ft with 2 turns (QC): 6 Type of Wheelchair: Manual Exercises Supine Ex: Ankle pumps, Quad Set, Rolling, Glut sets, Heel Slides, Short Arc Quads, Scooting, Straight leg raise, Hip abd/add Supine Reps: 12 Treatments all TRF heights at 21 in w/, chair, bed allows for fluid indep in out bed and chair Assessment Current Status: Good Progress marked progress in funct mob PT Short Term Goals Short Term Goals Time Frame: Jan 18, 2022 Roll Left & Right: 6 Sit to lyin Lying to sitting on side of be: 4 Sit to stand: 3 Chair/vju-en-yuubm transfer: 4 Wheel 50ft w/2 turns: 3 PT Extrusion Technician Goals Care Home Goals PT Care Home Goals Time Frame: February 01, 2022 Roll Left & Right (QC): 6 Sit to Lying (QC): 3 (Brianna) Lying-Sitting on Side/Bed(QC): 6 Sit to Stand (QC): 4 (CGA) Chair/Trj-ov-Gcfun Xfer(QC): 4 (SBA) Toilet Transfer (QC): 4 (SBA) Car Transfer (QC): 3 (Brianna) Does the Patient Walk: Yes Walk 10 feet (QC): 4 (CGA) Walk 50ft with 2 Turns (QC): 88 Walk 150 ft (QC): 88 Walking 10ft on Uneven Surface: 88 1 Step (curb) (QC): 88 4 Steps (QC): 88 12 Steps (QC): 88 Picking up an Object (QC): 4 (using mouthpiece maker) Wheel 50 feet with 2 turns (QC: 4 Wheel 150 feet: 4 PT Plan Treatment/Plan Treatment Plan: Continue Plan of Care Treatment Plan: Bed Mobility, Education, Functional Activity Yadi, Functional Strength, Group Therapy, Gait, Safety, Therapeutic Exercise, Transfers Treatment Duration: February 01, 2022 Frequency: At least 5 of 7 days/Wk (IRF) Estimated Hrs Per Day: 1.5 hours per day Patient and/or Family Agrees t: Yes Safety Risks/Education Patient Education: Gait Training, Transfer Techniques, Correct Positioning, W/C Management, Disease Process, Safety Issues Teaching Recipient: Patient Teaching Methods: Demonstration, Discussion Response to Teaching: Verbalize Understanding, Return Demonstration, Reinforcement Needed Time/GCodes Time In: 900 Time Out: 1000 Total Billed Treatment Time: 60 Total Billed Treatment 1,FA35m,GT10m,EX15m MARTIN GONZALEZ [employer] LE[employer] MARKETING Jan 18, 2022 10:07
--- NOTE | 2022-01-18 14:41 | Therapy Group Daily Note ---
Therapy Daily Group Note Patient Education Topic Exercises, Other List Below (car and chair TRFs, core) Exercises LE Seated Exercise, Sit to/from Stand, UE Exercise Session Ratio (pt:therapist): 4:1 Goal of Session: Education on ARU Expectations, UE/LE Strengthing, Safety with Transfers Goal Met for this Session: Yes Pt Benefit of Group: Contributions to Others, Increased Functional Strength, Improved Cognition, Socialization Other/Notes Pt. participated in group session this date. Pt. wheeled self to from group, Pt TRFd to bed aftr with assist of 1. Pt. was social, introducing herself and visiting with others , pts were educated regarding ARU and its requirements and practices . Pts. participated in seated U&L extremity exercises using 1 and 2# weights as well as seated core exercises. memory game and strategies were done utilizing images and challenging patients to remember their placement after they were turned over. Pts were educated and demonstrations we done for sit to stand from chair with arms , car TRFs, as well as curb step up down. Pt. back to room with harris at hand after group. Start Time: 13:00 Stop Time: 14:00 Total Billed Treatment Time: 60 Total Billed Treatment ,GRP MARTIN GONZALEZ CARDIOVASCULAR RADIOLOGIC TECHNOLOGIST Jan 18, 2022 14:41
[2022-01-18] MEDS: RIVAROXABAN 10 MG TABLET (XARELTO) PO SCH (17:25)
[2022-01-18 19:58] VITALS: BP 114/78
[2022-01-18] MEDS: ALPRAZolam 0.5 MG (XANAX) TAB PO SCH (21:51)
[2022-01-18] MEDS: MELATONIN 3 MG TABLET PO SCH (21:51)
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
[2022-01-19] MEDS: LEVOTHYROXINE 50 MCG (LEVOTHROID) TAB PO SCH (06:51)
[2022-01-19 07:33] VITALS: BP 141/76
[2022-01-19] MEDS: VITAMIN D3 25 MCG (1,000 UNITS) TABLET PO SCH (07:40)
[2022-01-19] MEDS: HYDROCORTISONE 1% CREAM 30 GM TUBE TOP SCH ×2 (07:40→21:51)
[2022-01-19] MEDS: LACTOBACILLUS ACIDOPHILUS (PROBIOTIC) CAPSULE PO SCH ×3 (07:40→18:17)
[2022-01-19] MEDS: MICONAZOLE 2% POWDER (DESENEX AF) 90 GM TOP SCH ×2 (07:41→21:52)
[2022-01-19] MEDS: metFORMIN XR 500 MG (GLUCOPHAGE XR) TAB PO SCH (07:41)
[2022-01-19] MEDS: LORATADINE (CLARITIN) 10 MG TAB PO SCH (07:41)
[2022-01-19] MEDS: MELOXICAM 7.5 MG (MOBIC) TABLET PO SCH (07:41)
[2022-01-19] MEDS: PANTOPRAZOLE 40 MG (PROTONIX) TAB PO SCH (07:41)
[2022-01-19] MEDS: DOCUSATE SODIUM 100 MG (COLACE) CAP PO SCH ×2 (07:48→21:50)
[2022-01-19] MEDS: polyethylene glycoL POWDER 17 GM (MIRALAX) PACK PO SCH ×2 (08:57→21:53)
[2022-01-19] MEDS: SENNA W/DOCUSATE (SENOKOT S) TABLET PO SCH ×2 (08:58→21:53)
--- NOTE | 2022-01-19 09:40 | Physical Therapy Daily Note ---
PT Daily Note-Current Subjective Pt agrees to PT. Mental Status Patient Orientation: Person, Place, Time, Situation Attachments: Other-See Comments (CAM boot) Transfers SCALE: Activities may be completed with or without assistive devices. 8-Vlznjnuptc-aspuzpw completes the activity by him/herself with no assistance from a helper. 5-Set-up or Clean-up Assistance-helper sets up or cleans up; patient completes activity. [place] assists only prior to or following the activity. 4-Supervision or Touching Assistance-helper provides verbal cues and/or touching/steadying and/or contact guard assistance as patient completes activity. Assistance may be provided throughout the activity or intermittently. 3-Partial/Moderate Assistance-helper does LESS THAN HALF the effort. [place] lifts, holds or supports trunk or limbs, but provides less than half the effort. 2-Substantial/Maximal Assistance-helper does MORE THAN HALF the effort. [place] lifts or holds trunk or limbs and provides more than half the effort. 5-Edxpifzru-ozmvgb does ALL the effort. Patient does none of the effort to complete the activity. Or, the assistance of 2 or more helpers is required for the patient to complete the activity. If activity was not attempted, code reason: 7-Patient Refused. 9-Not Applicable-not attempted and the patient did not perform the activity before the current illness, exacerbation or injury. 10-Not Attempted due to Environmental Limitations-(lack of equipment, weather restraints, etc.). 88-Not Attempted due to Medical Conditions or Safety Concerns. Roll Left & Right (QC): 6 Sit to Lying (QC): 4 Lying to Sitting/Side of Bed(Q: 6 Sit to Stand (QC): 6 Chair/Jor-uv-Uryra Xfer(QC): 6 Weight Bearing Right Lower Extremity: Right Touch Toe Bearing Full Weight Bearing Wheelchair Training Does the Pt Use a Wheelchair?: Yes Wheel 50 ft with 2 turns (QC): 6 Wheel 150 ft (QC): 6 Type of Wheelchair: Manual Exercises Supine Ex: Ankle pumps, Quad Set, Glut sets, Heel Slides, Short Arc Quads, Straight leg raise, Hip abd/add Supine Reps: 15 Seated Therapy Exercises: Ankle pumps, Sit to stand, Long arc quads, Hip flexion, Hip abd/add, Glut set Seated Reps: 15 Treatments Pt sitting in WC upon arrival of PT. Pt completes seated EX in WC then TF to bed to lay supine and complete supine EX. HEALTH AND SOCIAL CARE TEACHER helps pt tighten CAM boot while laying supine. Pt TF to WC for WC mobility in hallway and into the gym. Pt was left with OT in gym. All needs met. Assessment Current Status: Good Progress Pt is motivated and pushes herself. Pt is not really walking at this point due to dx, WC is primary use for mobility. Pt can do SPT from WC to bed. PT Short Term Goals Short Term Goals Time Frame: Jan 18, 2022 Roll Left & Right: 6 Sit to lyin Lying to sitting on side of be: 4 Sit to stand: 3 Chair/zog-oi-lutpb transfer: 4 Wheel 50ft w/2 turns: 3 PT Prison Goals Warehouse Order Selector Goals PT Prison Goals Time Frame: February 01, 2022 Roll Left & Right (QC): 6 Sit to Lying (QC): 3 (Brianna) Lying-Sitting on Side/Bed(QC): 6 Sit to Stand (QC): 4 (CGA) Chair/Yyt-dw-Yekhk Xfer(QC): 4 (SBA) Toilet Transfer (QC): 4 (SBA) Car Transfer (QC): 3 (Brianna) Does the Patient Walk: Yes Walk 10 feet (QC): 4 (CGA) Walk 50ft with 2 Turns (QC): 88 Walk 150 ft (QC): 88 Walking 10ft on Uneven Surface: 88 1 Step (curb) (QC): 88 4 Steps (QC): 88 12 Steps (QC): 88 Picking up an Object (QC): 4 (using instrument maker and repairer) Wheel 50 feet with 2 turns (QC: 4 Wheel 150 feet: 4 PT Plan Treatment/Plan Treatment Plan: Continue Plan of Care Treatment Plan: Bed Mobility, Education, Functional Activity Yadi, Functional Strength, Group Therapy, Gait, Safety, Therapeutic Exercise, Transfers Treatment Duration: February 01, 2022 Frequency: At least 5 of 7 days/Wk (IRF) Estimated Hrs Per Day: 1.5 hours per day Patient and/or Family Agrees t: Yes Safety Risks/Education Patient Education: W/C Management, Reviewed Don/Doff Brace Teaching Recipient: Patient Teaching Methods: Discussion Response to Teaching: Verbalize Understanding Time/GCodes Time In: 800 Time Out: 900 Total Billed Treatment Time: 60 Total Billed Treatment 1, EX x2 (30 min), WC (15 min), FA (15 min) [employer] [place] HEALTH AND SOCIAL CARE TEACHER Jan 19, 2022 09:40
[2022-01-19] MEDS: ACETAMINOPHEN 500 MG TAB (TYLENOL) PO PRN ×2 (10:15→18:18)
--- NOTE | 2022-01-19 10:37 | Occupational Ther Daily Note ---
OT Current Status-Daily Note Subjective Pt alert, took over care from PT in therapy gym. Pt agrees to therapy. No c/o pain. Mental Status/Objective Patient Orientation: Person, Place, Time, Situation Attachments: Other-See Comments (walking boot) ADL-Treatment Pt declines any ADLs today. Pt is able to transfer to [facility] and complete clothing manipulation with SBA using FWW. After therapy, pt sitting on BSC with call light in reach. All needs met. Therapy Code Descriptions/Definitions Functional [place] Measure: 0=Not Assessed/NA 4=Minimal Assistance 1=Total Assistance 5=Supervision or Setup 2=Maximal Assistance 6=Modified [place] 3=Moderate Assistance 7=Complete IndependenceSCALE: Activities may be completed with or without assistive devices. 3-Huddwjpfui-xykegeg completes the activity by him/herself with no assistance from a helper. 5-Set-up or Clean-up Assistance-helper sets up or cleans up; patient completes activity. [place] assists only prior to or following the activity. 4-Supervision or Touching Assistance-helper provides verbal cues and/or touching/steadying and/or contact guard assistance as patient completes activity. Assistance may be provided throughout the activity or intermittently. 3-Partial/Moderate Assistance-helper does LESS THAN HALF the effort. [place] lifts, holds or supports trunk or limbs, but provides less than half the effort. 2-Substantial/Maximal Assistance-helper does MORE THAN HALF the effort. [place] lifts or holds trunk or limbs and provides more than half the effort. 7-Vxccfnofd-jhuenv does ALL the effort. Patient does none of the effort to complete the activity. Or, the assistance of 2 or more helpers is required for the patient to complete the activity. If activity was not attempted, code reason: 7-Patient Refused. 9-Not Applicable-not attempted and the patient did not perform the activity before the current illness, exacerbation or injury. 10-Not Attempted due to Environmental Limitations-(lack of equipment, weather restraints, etc.). 88-Not Attempted due to Medical Conditions or Safety Concerns. Other Treatment Took over care from PT in therapy gym. Pt completed B UE exercises to increase strength and activity tolerance for daily functional tasks. Skilled instruction for correct technique and modifications were given. Medium/heavy resistance theraband for B UE exercises, 3 sets 10 reps of 6 exercises (2 with theraband, 1 with 2# hand wt). Pt completed arm bike for 10 min at 30 jackson resistance without breaks. OT Short Term Goals Short Term Goals Time Frame: Jan 18, 2022 Eatin Oral hygiene: 5 Toileting hygiene: 2 Shower/bathe self: 3 Upper body dressin Lower body dressin Putting on/taking off footwear: 2 OT Senior Care Goals Senior Care Goals Time Frame: January 30, 2022 Eating (QC): 6 Oral Hygiene (QC): 6 Toileting Hygiene (QC): 6 Shower/Bathe Self (QC): 5 Upper Body Dressing (QC): 5 Lower Body Dressing (QC): 5 On/Off Footwear (QC): 5 1=Demonstrate adherence to instructed precautions during ADL tasks. 2=Patient will verbalize/demonstrate understanding of assistive devices/modifications for ADL. 3=Patient will improve strength/tolerance for activity to enable patient to perform ADL's. OT Education/Plan Problem List/Assessment Assessment: Decreased Activ Tolerance, Decreased UE Strength, Impaired Self- Care Skills Discharge Recommendations Plan/Recommendations: Continue POC Treatment Plan/Plan of Care Patient would benefit from OT for education, treatment and training to promote independence in ADL's, mobility, safety and/or upper extremity function for ADL's. Plan of Care: ADL Retraining, Functional Mobility, Group Exercise/Act as Ind, Orthotic Fitting/Training, UE Funct Exercise/Act, W/C Management Training Treatment Duration: January 30, 2022 Frequency: At least 5 of 7 days/Wk (IRF) Estimated Hrs Per Day: 1.5 hours per day Rehab Potential: Fair Time/GCodes Start Time: 09:00 Stop Time: 10:00 Total Time Billed (hr/min): 60 Billed Treatment Time 1 visit-ADL 1 (10 min) EX 3 (50 min) SIMON MEADOWS Jan 19, 2022 10:37
--- NOTE | 2022-01-19 13:40 | Physical Therapy Daily Note ---
PT Daily Note-Current Subjective Pt agrees to PT. Pt states she is going home on sunday and has concerns for getting in her husbands truck when leaving. Mental Status Patient Orientation: Person, Place, Time, Situation Transfers SCALE: Activities may be completed with or without assistive devices. 6-Dghhirqikb-tvovcvb completes the activity by him/herself with no assistance from a helper. 5-Set-up or Clean-up Assistance-helper sets up or cleans up; patient completes activity. [place] assists only prior to or following the activity. 4-Supervision or Touching Assistance-helper provides verbal cues and/or touching/steadying and/or contact guard assistance as patient completes activity. Assistance may be provided throughout the activity or intermittently. 3-Partial/Moderate Assistance-helper does LESS THAN HALF the effort. [place] lifts, holds or supports trunk or limbs, but provides less than half the effort. 2-Substantial/Maximal Assistance-helper does MORE THAN HALF the effort. [place] lifts or holds trunk or limbs and provides more than half the effort. 3-Ruvgvjojd-jqnctq does ALL the effort. Patient does none of the effort to complete the activity. Or, the assistance of 2 or more helpers is required for the patient to complete the activity. If activity was not attempted, code reason: 7-Patient Refused. 9-Not Applicable-not attempted and the patient did not perform the activity before the current illness, exacerbation or injury. 10-Not Attempted due to Environmental Limitations-(lack of equipment, weather restraints, etc.). 88-Not Attempted due to Medical Conditions or Safety Concerns. Sit to Stand (QC): 4 Weight Bearing Right Lower Extremity: Right Touch Toe Bearing Full Weight Bearing Wheelchair Training Does the Pt Use a Wheelchair?: Yes Type of Wheelchair: Manual Treatments Pt sitting in chair upon arrival of PT. Pt voices her concerns about having to step up into her husbands truck when leaving. LOGGING SHOVEL OPERATOR talks to pt about how to get into the truck and if the pt could obtain a step to provide help. Pt attempts to step onto the 6in step but says she can't get her affected leg up onto step. All needs met, call light in hand. Assessment Current Status: Good Progress Pt is motivated but after 2 attempts to step on the step she is fatigued and complains of back pain. PT Short Term Goals Short Term Goals Time Frame: Jan 18, 2022 Roll Left & Right: 6 Sit to lyin Lying to sitting on side of be: 4 Sit to stand: 3 Chair/lmc-wq-yqqhb transfer: 4 Wheel 50ft w/2 turns: 3 PT General Utility Worker Goals Group Home Goals PT Group Home Goals Time Frame: February 01, 2022 Roll Left & Right (QC): 6 Sit to Lying (QC): 3 (Brianna) Lying-Sitting on Side/Bed(QC): 6 Sit to Stand (QC): 4 (CGA) Chair/Qbg-ey-Gdnov Xfer(QC): 4 (SBA) Toilet Transfer (QC): 4 (SBA) Car Transfer (QC): 3 (Brianna) Does the Patient Walk: Yes Walk 10 feet (QC): 4 (CGA) Walk 50ft with 2 Turns (QC): 88 Walk 150 ft (QC): 88 Walking 10ft on Uneven Surface: 88 1 Step (curb) (QC): 88 4 Steps (QC): 88 12 Steps (QC): 88 Picking up an Object (QC): 4 (using radio host) Wheel 50 feet with 2 turns (QC: 4 Wheel 150 feet: 4 PT Plan Treatment/Plan Treatment Plan: Continue Plan of Care Treatment Plan: Bed Mobility, Education, Functional Activity Yadi, Functional Strength, Group Therapy, Gait, Safety, Therapeutic Exercise, Transfers Treatment Duration: February 01, 2022 Frequency: At least 5 of 7 days/Wk (IRF) Estimated Hrs Per Day: 1.5 hours per day Patient and/or Family Agrees t: Yes Safety Risks/Education Patient Education: Transfer Techniques, Steps Teaching Recipient: Patient Teaching Methods: Demonstration, Discussion Response to Teaching: Verbalize Understanding, Return Demonstration Time/GCodes Time In: 1300 Time Out: 1330 Total Billed Treatment Time: 30 Total Billed Treatment 1, FA x2 (30 min) AUTUMN ZAPATA LOGGING SHOVEL OPERATOR Jan 19, 2022 13:40
--- NOTE | 2022-01-19 14:17 | Occupational Ther Daily Note ---
OT Current Status-Daily Note Subjective Pt alert, sitting in chair. Pt agrees to therapy. No c/o pain at this time. Mental Status/Objective Patient Orientation: Person, Place, Time, Situation ADL-Treatment Therapy Code Descriptions/Definitions Functional [place] Measure: 0=Not Assessed/NA 4=Minimal Assistance 1=Total Assistance 5=Supervision or Setup 2=Maximal Assistance 6=Modified [place] 3=Moderate Assistance 7=Complete IndependenceSCALE: Activities may be completed with or without assistive devices. 4-Cekiidyuyr-wkxnpyn completes the activity by him/herself with no assistance from a helper. 5-Set-up or Clean-up Assistance-helper sets up or cleans up; patient completes activity. [place] assists only prior to or following the activity. 4-Supervision or Touching Assistance-helper provides verbal cues and/or touching/steadying and/or contact guard assistance as patient completes activity. Assistance may be provided throughout the activity or intermittently. 3-Partial/Moderate Assistance-helper does LESS THAN HALF the effort. [place] lifts, holds or supports trunk or limbs, but provides less than half the effort. 2-Substantial/Maximal Assistance-helper does MORE THAN HALF the effort. [place] lifts or holds trunk or limbs and provides more than half the effort. 9-Tlycmzokx-ckhrpd does ALL the effort. Patient does none of the effort to complete the activity. Or, the assistance of 2 or more helpers is required for the patient to complete the activity. If activity was not attempted, code reason: 7-Patient Refused. 9-Not Applicable-not attempted and the patient did not perform the activity before the current illness, exacerbation or injury. 10-Not Attempted due to Environmental Limitations-(lack of equipment, weather restraints, etc.). 88-Not Attempted due to Medical Conditions or Safety Concerns. Other Treatment After instruction on different types of hand placement for sit to stands, pt able to complete with SBA from lower surface. Blankets were placed in chair to increase height for ease of sit <-->stands. Pt educated on tub transfer bench t ransfers using for tub/shower. Pt able to complete transfer with SBA though unable to fit B UE thoroughly in tub. Pt stated that she is going to friends/neighbors that has a handicapped walk-in shower when she gets home. Pt then discussed toilet set up. Pt would benefit from elevated toilet seat with arms(bariatric). After session, pt sitting in chair with call light/phone in reach. All needs met in room. Education OT Patient Education: Modified ADL techniques, Transfer techniques, Use of adapted equipment Teaching Recipient: Patient Teaching Methods: Demonstration, Discussion Response to Teaching: Verbalize Understanding, Return Demonstration, Reinforce ment Needed OT Short Term Goals Short Term Goals Time Frame: Jan 18, 2022 Eatin Oral hygiene: 5 Toileting hygiene: 2 Shower/bathe self: 3 Upper body dressin Lower body dressin Putting on/taking off footwear: 2 OT Instructor Decorating Goals Instructor Decorating Goals Time Frame: January 30, 2022 Eating (QC): 6 Oral Hygiene (QC): 6 Toileting Hygiene (QC): 6 Shower/Bathe Self (QC): 5 Upper Body Dressing (QC): 5 Lower Body Dressing (QC): 5 On/Off Footwear (QC): 5 1=Demonstrate adherence to instructed precautions during ADL tasks. 2=Patient will verbalize/demonstrate understanding of assistive devices/modifications for ADL. 3=Patient will improve strength/tolerance for activity to enable patient to perform ADL's. OT Education/Plan Problem List/Assessment Assessment: Impaired Self-Care Skills Discharge Recommendations Plan/Recommendations: Continue POC Treatment Plan/Plan of Care Patient would benefit from OT for education, treatment and training to promote independence in ADL's, mobility, safety and/or upper extremity function for ADL's. Plan of Care: ADL Retraining, Functional Mobility, Group Exercise/Act as Ind, Orthotic Fitting/Training, UE Funct Exercise/Act, W/C Management Training Treatment Duration: January 30, 2022 Frequency: At least 5 of 7 days/Wk (IRF) Estimated Hrs Per Day: 1.5 hours per day Rehab Potential: Fair Time/GCodes Start Time: 11:30 Stop Time: 12:00 Total Time Billed (hr/min): 30 Billed Treatment Time 1 visit-FA 2 (30 min) SIMON MEADOWS Jan 19, 2022 14:17
[2022-01-19] MEDS: RIVAROXABAN 10 MG TABLET (XARELTO) PO SCH (18:17)
[2022-01-19 20:14] VITALS: BP 128/75
[2022-01-19] MEDS: ALPRAZolam 0.5 MG (XANAX) TAB PO SCH (21:50)
[2022-01-19] MEDS: MELATONIN 3 MG TABLET PO SCH (21:50)
[2022-01-20] MEDS: LEVOTHYROXINE 50 MCG (LEVOTHROID) TAB PO SCH (06:52)
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
[2022-01-20] MEDS: VITAMIN D3 25 MCG (1,000 UNITS) TABLET PO SCH (07:29)
[2022-01-20] MEDS: LORATADINE (CLARITIN) 10 MG TAB PO SCH (07:29)
[2022-01-20] MEDS: PANTOPRAZOLE 40 MG (PROTONIX) TAB PO SCH (07:29)
[2022-01-20] MEDS: LACTOBACILLUS ACIDOPHILUS (PROBIOTIC) CAPSULE PO SCH ×3 (07:29→18:16)
[2022-01-20] MEDS: MICONAZOLE 2% POWDER (DESENEX AF) 90 GM TOP SCH ×2 (07:30→21:01)
[2022-01-20] MEDS: MELOXICAM 7.5 MG (MOBIC) TABLET PO SCH (07:30)
[2022-01-20] MEDS: metFORMIN XR 500 MG (GLUCOPHAGE XR) TAB PO SCH (07:30)
[2022-01-20] MEDS: HYDROCORTISONE 1% CREAM 30 GM TUBE TOP SCH ×2 (07:31→21:03)
[2022-01-20 07:55] VITALS: BP 118/72
[2022-01-20] MEDS: SENNA W/DOCUSATE (SENOKOT S) TABLET PO SCH ×2 (09:00→21:00)
[2022-01-20] MEDS: DOCUSATE SODIUM 100 MG (COLACE) CAP PO SCH ×2 (09:00→21:00)
[2022-01-20] MEDS: polyethylene glycoL POWDER 17 GM (MIRALAX) PACK PO SCH ×2 (09:00→21:00)
--- NOTE | 2022-01-20 09:03 | Physical Therapy Daily Note ---
PT Daily Note-Current Subjective Pt agrees to PT. Pt states that someone she knows is going to build her a step to assist her to get into her husbands truck when she leaves. Mental Status Patient Orientation: Person, Place, Time, Situation Attachments: Other-See Comments (CAM boot) Transfers SCALE: Activities may be completed with or without assistive devices. 9-Itwsganvep-rmbxhnn completes the activity by him/herself with no assistance from a helper. 5-Set-up or Clean-up Assistance-helper sets up or cleans up; patient completes activity. [place] assists only prior to or following the activity. 4-Supervision or Touching Assistance-helper provides verbal cues and/or touching/steadying and/or contact guard assistance as patient completes activity. Assistance may be provided throughout the activity or intermittently. 3-Partial/Moderate Assistance-helper does LESS THAN HALF the effort. [place] lifts, holds or supports trunk or limbs, but provides less than half the effort. 2-Substantial/Maximal Assistance-helper does MORE THAN HALF the effort. [place] lifts or holds trunk or limbs and provides more than half the effort. 7-Eckkttizd-zqsxgd does ALL the effort. Patient does none of the effort to complete the activity. Or, the assistance of 2 or more helpers is required for the patient to complete the activity. If activity was not attempted, code reason: 7-Patient Refused. 9-Not Applicable-not attempted and the patient did not perform the activity before the current illness, exacerbation or injury. 10-Not Attempted due to Environmental Limitations-(lack of equipment, weather restraints, etc.). 88-Not Attempted due to Medical Conditions or Safety Concerns. Roll Left & Right (QC): 6 Sit to Lying (QC): 4 Lying to Sitting/Side of Bed(Q: 6 Sit to Stand (QC): 6 Chair/Vsr-ys-Xyhda Xfer(QC): 6 Weight Bearing Right Lower Extremity: Right Touch Toe Bearing Full Weight Bearing Gait Training Distance: 15' Walk 10 feet (QC): 4 Gait Persons Needed: 1 Gait Assistive Device: FWW Wheelchair Training Does the Pt Use a Wheelchair?: Yes Wheel 50 ft with 2 turns (QC): 6 Wheel 150 ft (QC): 6 Type of Wheelchair: Manual Exercises Supine Ex: Ankle pumps, Quad Set, Glut sets, Heel Slides, Short Arc Quads, Straight leg raise, Hip abd/add Supine Reps: 20 Seated Therapy Exercises: Ankle pumps, Sit to stand, Long arc quads, Hip flexion, Glut set Seated Reps: 15 Treatments Pt sitting in WC upon arrival of PT. Pt and WALLPAPER REMOVER STEAM discuss about a step she is having someone build for her to help her get in her husbands truck. Measurements taken so step could be built to better assist stepping into truck as this is only transportation at this time. Pt completes seated EX at EOB then TF to supine to complete supine EX. Pt TF to EOB and amb. to door then completes WC mobility in hallway. Pt returns to room and sits up in WC. All needs met, call light in hand. Assessment Current Status: Good Progress Pt is motivated and pushes herself during tx. PT Short Term Goals Short Term Goals Time Frame: Jan 18, 2022 Roll Left & Right: 6 Sit to lyin Lying to sitting on side of be: 4 Sit to stand: 3 Chair/qth-fv-amzwz transfer: 4 Wheel 50ft w/2 turns: 3 PT Lead Sql Developer Goals Lead Sql Developer Goals PT Lead Sql Developer Goals Time Frame: February 01, 2022 Roll Left & Right (QC): 6 Sit to Lying (QC): 3 (Brianna) Lying-Sitting on Side/Bed(QC): 6 Sit to Stand (QC): 4 (CGA) Chair/Lqm-ck-Gqsxp Xfer(QC): 4 (SBA) Toilet Transfer (QC): 4 (SBA) Car Transfer (QC): 3 (Brianna) Does the Patient Walk: Yes Walk 10 feet (QC): 4 (CGA) Walk 50ft with 2 Turns (QC): 88 Walk 150 ft (QC): 88 Walking 10ft on Uneven Surface: 88 1 Step (curb) (QC): 88 4 Steps (QC): 88 12 Steps (QC): 88 Picking up an Object (QC): 4 (using closed circuit screen watcher) Wheel 50 feet with 2 turns (QC: 4 Wheel 150 feet: 4 PT Plan Problem List Problem List: Activity Tolerance Treatment/Plan Treatment Plan: Continue Plan of Care Treatment Plan: Bed Mobility, Education, Functional Activity Yadi, Functional Strength, Group Therapy, Gait, Safety, Therapeutic Exercise, Transfers Treatment Duration: February 01, 2022 Frequency: At least 5 of 7 days/Wk (IRF) Estimated Hrs Per Day: 1.5 hours per day Patient and/or Family Agrees t: Yes Safety Risks/Education Patient Education: Transfer Techniques, Steps Teaching Recipient: Patient Teaching Methods: Discussion Response to Teaching: Verbalize Understanding Time/GCodes Time In: 800 Time Out: 900 Total Billed Treatment Time: 60 Total Billed Treatment 1, EX x2 (30 min) WC (15 min) FA (15 min) AUTUMN ZAPATA WALLPAPER REMOVER STEAM Jan 20, 2022 09:03
[2022-01-20] MEDS: ACETAMINOPHEN 500 MG TAB (TYLENOL) PO PRN (11:21)
--- NOTE | 2022-01-20 11:38 | Occupational Ther Daily Note ---
OT Current Status-Daily Note Subjective Pt alert, sitting in w/c. Pt agrees to therapy. No c/o pain. Mental Status/Objective Patient Orientation: Person, Place, Time, Situation ADL-Treatment Pt agrees to shower. Pt gathered clothing at w/c level prior to OT session. Pt completed shower in central bathing using bariatric BSC. Pt pulled to stand using grabbars then w/c <-->BSC switched for transfers. Using BSC pt able to complete shower by self while seated utilizing LH sponge, grabbars and hand held shower. Do to time constraints, assist to don/doff socks, shoes and pants over feet then pt stood with SBA for safety to hike pants over hips. Independent with upper body drsg. Independent with oral care and grooming sitting at sink. After therapy, pt sitting in chair with call light/phone in reach. All needs met in room. Therapy Code Descriptions/Definitions Functional [place] Measure: 0=Not Assessed/NA 4=Minimal Assistance 1=Total Assistance 5=Supervision or Setup 2=Maximal Assistance 6=Modified [place] 3=Moderate Assistance 7=Complete IndependenceSCALE: Activities may be completed with or without assistive devices. 1-Ayyqlfhavr-enldjnb completes the activity by him/herself with no assistance from a helper. 5-Set-up or Clean-up Assistance-helper sets up or cleans up; patient completes activity. [place] assists only prior to or following the activity. 4-Supervision or Touching Assistance-helper provides verbal cues and/or touching /steadying and/or contact guard assistance as patient completes activity. Assistance may be provided throughout the activity or intermittently. 3-Partial/Moderate Assistance-helper does LESS THAN HALF the effort. [place] lifts, holds or supports trunk or limbs, but provides less than half the effort. 2-Substantial/Maximal Assistance-helper does MORE THAN HALF the effort. [place] lifts or holds trunk or limbs and provides more than half the effort. 3-Whrxsmsgf-pbjglm does ALL the effort. Patient does none of the effort to complete the activity. Or, the assistance of 2 or more helpers is required for the patient to complete the activity. If activity was not attempted, code reason: 7-Patient Refused. 9-Not Applicable-not attempted and the patient did not perform the activity before the current illness, exacerbation or injury. 10-Not Attempted due to Environmental Limitations-(lack of equipment, weather restraints, etc.). 88-Not Attempted due to Medical Conditions or Safety Concerns. Eating (QC): 6 Oral Hygiene (QC): 6 Shower/Bathe Self (QC): 6 Upper Body Dressing (QC): 6 OT Short Term Goals Short Term Goals Time Frame: Jan 18, 2022 Eatin Oral hygiene: 5 Toileting hygiene: 2 Shower/bathe self: 3 Upper body dressin Lower body dressin Putting on/taking off footwear: 2 OT Pump Installer Goals Pump Installer Goals Time Frame: January 30, 2022 Eating (QC): 6 Oral Hygiene (QC): 6 Toileting Hygiene (QC): 6 Shower/Bathe Self (QC): 5 Upper Body Dressing (QC): 5 Lower Body Dressing (QC): 5 On/Off Footwear (QC): 5 1=Demonstrate adherence to instructed precautions during ADL tasks. 2=Patient will verbalize/demonstrate understanding of assistive devices/modifications for ADL. 3=Patient will improve strength/tolerance for activity to enable patient to perform ADL's. OT Education/Plan Problem List/Assessment Assessment: Decreased UE Strength, Impaired Self-Care Skills Discharge Recommendations Plan/Recommendations: Continue POC Treatment Plan/Plan of Care Patient would benefit from OT for education, treatment and training to promote independence in ADL's, mobility, safety and/or upper extremity function for ADL's. Plan of Care: ADL Retraining, Functional Mobility, Group Exercise/Act as Ind, Orthotic Fitting/Training, UE Funct Exercise/Act, W/C Management Training Treatment Duration: January 30, 2022 Frequency: At least 5 of 7 days/Wk (IRF) Estimated Hrs Per Day: 1.5 hours per day Rehab Potential: Fair Time/GCodes Start Time: 09:00 Stop Time: 10:00 Total Time Billed (hr/min): 60 Billed Treatment Time 1 visit-ADL 4 (60 min) SIMON MEADOWS Jan 20, 2022 11:38
--- NOTE | 2022-01-20 13:38 | Occupational Ther Daily Note ---
OT Current Status-Daily Note Subjective Pt alert, sitting in chair. Pt agrees to therapy. No c/o pain. Mental Status/Objective Patient Orientation: Person, Place, Time, Situation Attachments: Other-See Comments (walking boot) ADL-Treatment Working on pt donning/doffing footwear. Using dressing stick, pt able to doff socks then using sock aide donned sock. Pt stated that if she is sitting on EOB , can bring foot up onto bed to don sock and shoe. Elastic shoe laces placed in pt's shoes to make donning/doffing easier. Pt utilized LH shoehorn to don shoe independently. After therapy, pt sitting in chair with call light/phone in reach. All needs met in room. Therapy Code Descriptions/Definitions Functional [place] Measure: 0=Not Assessed/NA 4=Minimal Assistance 1=Total Assistance 5=Supervision or Setup 2=Maximal Assistance 6=Modified [place] 3=Moderate Assistance 7=Complete IndependenceSCALE: Activities may be completed with or without assistive devices. 9-Sbxbgxkbjk-nfflksi completes the activity by him/herself with no assistance from a helper. 5-Set-up or Clean-up Assistance-helper sets up or cleans up; patient completes activity. [place] assists only prior to or following the activity. 4-Supervision or Touching Assistance-helper provides verbal cues and/or touching/steadying and/or contact guard assistance as patient completes activity. Assistance may be provided throughout the activity or intermittently. 3-Partial/Moderate Assistance-helper does LESS THAN HALF the effort. [place] lifts, holds or supports trunk or limbs, but provides less than half the effort. 2-Substantial/Maximal Assistance-helper does MORE THAN HALF the effort. [place] lifts or holds trunk or limbs and provides more than half the effort. 7-Ltsbetdsc-gdicmm does ALL the effort. Patient does none of the effort to complete the activity. Or, the assistance of 2 or more helpers is required for the patient to complete the activity. If activity was not attempted, code reason: 7-Patient Refused. 9-Not Applicable-not attempted and the patient did not perform the activity before the current illness, exacerbation or injury. 10-Not Attempted due to Environmental Limitations-(lack of equipment, weather restraints, etc.). 88-Not Attempted due to Medical Conditions or Safety Concerns. On/Off Footwear: [address] to get dressing equipment, different ways to step into tub when able and different toilet risers that will work in small area. OT Short Term Goals Short Term Goals Time Frame: Jan 18, 2022 Eatin Oral hygiene: 5 Toileting hygiene: 2 Shower/bathe self: 3 Upper body dressin Lower body dressin Putting on/taking off footwear: 2 OT Pulverizer Mill Operator Goals Residential Goals Time Frame: January 30, 2022 Eating (QC): 6 Oral Hygiene (QC): 6 Toileting Hygiene (QC): 6 Shower/Bathe Self (QC): 5 Upper Body Dressing (QC): 5 Lower Body Dressing (QC): 5 On/Off Footwear (QC): 5 1=Demonstrate adherence to instructed precautions during ADL tasks. 2=Patient will verbalize/demonstrate understanding of assistive devices/modifications for ADL. 3=Patient will improve strength/tolerance for activity to enable patient to perform ADL's. OT Education/Plan Problem List/Assessment Assessment: Impaired Self-Care Skills Discharge Recommendations Plan/Recommendations: Continue POC Treatment Plan/Plan of Care Patient would benefit from OT for education, treatment and training to promote independence in ADL's, mobility, safety and/or upper extremity function for A DL's. Plan of Care: ADL Retraining, Functional Mobility, Group Exercise/Act as Ind, Orthotic Fitting/Training, UE Funct Exercise/Act, W/C Management Training Treatment Duration: January 30, 2022 Frequency: At least 5 of 7 days/Wk (IRF) Estimated Hrs Per Day: 1.5 hours per day Rehab Potential: Fair Time/GCodes Start Time: 13:00 Stop Time: 13:30 Total Time Billed (hr/min): 30 Billed Treatment Time 1 visit-ADL 1 (20 min) FA 1 (10 min) SIMON MEADOWS Jan 20, 2022 13:37
--- NOTE | 2022-01-20 13:58 | Physical Therapy Daily Note ---
PT Daily Note-Current Subjective Pt agrees to PT. Pt states she was tired after morning PT session and her head and back hurt but is getting better. Pain Location Body Site: Head Pain Description: Ache Comment: Reports but doesn't rate Mental Status Patient Orientation: Person, Place, Time, Situation Transfers SCALE: Activities may be completed with or without assistive devices. 7-Ekmaiznbcq-zayfcgj completes the activity by him/herself with no assistance from a helper. 5-Set-up or Clean-up Assistance-helper sets up or cleans up; patient completes activity. [place] assists only prior to or following the activity. 4-Supervision or Touching Assistance-helper provides verbal cues and/or touching/steadying and/or contact guard assistance as patient completes activity. Assistance may be provided throughout the activity or intermittently. 3-Partial/Moderate Assistance-helper does LESS THAN HALF the effort. [place] lifts, holds or supports trunk or limbs, but provides less than half the effort. 2-Substantial/Maximal Assistance-helper does MORE THAN HALF the effort. [place] lifts or holds trunk or limbs and provides more than half the effort. 6-Idtrcfzbe-suqmat does ALL the effort. Patient does none of the effort to complete the activity. Or, the assistance of 2 or more helpers is required for the patient to complete the activity. If activity was not attempted, code reason: 7-Patient Refused. 9-Not Applicable-not attempted and the patient did not perform the activity before the current illness, exacerbation or injury. 10-Not Attempted due to Environmental Limitations-(lack of equipment, weather restraints, etc.). 88-Not Attempted due to Medical Conditions or Safety Concerns. Weight Bearing Right Lower Extremity: Right Touch Toe Bearing Full Weight Bearing Exercises Supine Ex: Ankle pumps, Quad Set, Glut sets, Heel Slides, Short Arc Quads, Straight leg raise, Hip abd/add Seated Therapy Exercises: Ankle pumps, Long arc quads, Hip flexion Treatments Pt sitting in chair upon arrival of PT. MISSILE MECHANIC and pt discuss/review HEP sheets and tx plan for home and next week. All needs met, call light in hand. Assessment Current Status: Good Progress Pt is motivated and pushes herself. PT Short Term Goals Short Term Goals Time Frame: Jan 18, 2022 Roll Left & Right: 6 Sit to lyin Lying to sitting on side of be: 4 Sit to stand: 3 Chair/meg-nn-pdkfw transfer: 4 Wheel 50ft w/2 turns: 3 PT Intermediate Goals Intermediate Goals PT Log Hooker Goals Time Frame: February 01, 2022 Roll Left & Right (QC): 6 Sit to Lying (QC): 3 (Brianna) Lying-Sitting on Side/Bed(QC): 6 Sit to Stand (QC): 4 (CGA) Chair/Tnd-gk-Pglne Xfer(QC): 4 (SBA) Toilet Transfer (QC): 4 (SBA) Car Transfer (QC): 3 (Brianna) Does the Patient Walk: Yes Walk 10 feet (QC): 4 (CGA) Walk 50ft with 2 Turns (QC): 88 Walk 150 ft (QC): 88 Walking 10ft on Uneven Surface: 88 1 Step (curb) (QC): 88 4 Steps (QC): 88 12 Steps (QC): 88 Picking up an Object (QC): 4 (using american sign language teacher) Wheel 50 feet with 2 turns (QC: 4 Wheel 150 feet: 4 PT Plan Problem List Problem List: Activity Tolerance Treatment/Plan Treatment Plan: Continue Plan of Care Treatment Plan: Bed Mobility, Education, Functional Activity Yadi, Functional Strength, Group Therapy, Gait, Safety, Therapeutic Exercise, Transfers Treatment Duration: February 01, 2022 Frequency: At least 5 of 7 days/Wk (IRF) Estimated Hrs Per Day: 1.5 hours per day Patient and/or Family Agrees t: Yes Safety Risks/Education Patient Education: Steps, Issued Written HEP, Correct Positioning, Safety Issues Teaching Recipient: Patient Teaching Methods: Demonstration, Discussion Response to Teaching: Verbalize Understanding, Return Demonstration Time/GCodes Time In: 1330 Time Out: 1400 Total Billed Treatment Time: 30 Total Billed Treatment 1, FA (15 min) EX (15 min) AUTUMN [place] MISSILE MECHANIC Jan 20, 2022 13:58
[2022-01-20] MEDS: RIVAROXABAN 10 MG TABLET (XARELTO) PO SCH (18:16)
[2022-01-20 19:41] VITALS: BP 104/72
[2022-01-20] MEDS: MELATONIN 3 MG TABLET PO SCH (21:00)
[2022-01-20] MEDS: ALPRAZolam 0.5 MG (XANAX) TAB PO SCH (21:00)
[2022-01-21] MEDS: ACETAMINOPHEN 500 MG TAB (TYLENOL) PO PRN ×2 (02:59→12:38)
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
[2022-01-21] MEDS: LEVOTHYROXINE 50 MCG (LEVOTHROID) TAB PO SCH (06:48)
[2022-01-21] MEDS: LORATADINE (CLARITIN) 10 MG TAB PO SCH (07:47)
[2022-01-21] MEDS: metFORMIN XR 500 MG (GLUCOPHAGE XR) TAB PO SCH (07:47)
[2022-01-21] MEDS: MELOXICAM 7.5 MG (MOBIC) TABLET PO SCH (07:47)
[2022-01-21] MEDS: LACTOBACILLUS ACIDOPHILUS (PROBIOTIC) CAPSULE PO SCH ×3 (07:47→17:53)
[2022-01-21] MEDS: PANTOPRAZOLE 40 MG (PROTONIX) TAB PO SCH (07:47)
[2022-01-21] MEDS: VITAMIN D3 25 MCG (1,000 UNITS) TABLET PO SCH (07:47)
[2022-01-21] MEDS: HYDROCORTISONE 1% CREAM 30 GM TUBE TOP SCH ×2 (07:48→21:17)
[2022-01-21] MEDS: MICONAZOLE 2% POWDER (DESENEX AF) 90 GM TOP SCH ×2 (07:48→21:18)
[2022-01-21 07:49] VITALS: BP 117/73
[2022-01-21] MEDS: polyethylene glycoL POWDER 17 GM (MIRALAX) PACK PO SCH ×2 (08:44→21:15)
[2022-01-21] MEDS: DOCUSATE SODIUM 100 MG (COLACE) CAP PO SCH ×2 (08:44→21:15)
[2022-01-21] MEDS: SENNA W/DOCUSATE (SENOKOT S) TABLET PO SCH ×2 (08:44→21:15)
--- NOTE | 2022-01-21 10:03 | Physical Therapy Daily Note ---
PT Daily Note-Current Subjective Pt. up in chair, agrees to therapy. States she has been doing some walking. Pt. denies pain throughout session. Mental Status Patient Orientation: Person, Place, Time, Situation Transfers SCALE: Activities may be completed with or without assistive devices. 2-Kxbgaxrehd-omgftda completes the activity by him/herself with no assistance from a helper. 5-Set-up or Clean-up Assistance-helper sets up or cleans up; patient completes activity. [place] assists only prior to or following the activity. 4-Supervision or Touching Assistance-helper provides verbal cues and/or touching/steadying and/or contact guard assistance as patient completes activity. Assistance may be provided throughout the activity or intermittently. 3-Partial/Moderate Assistance-helper does LESS THAN HALF the effort. [place] lifts, holds or supports trunk or limbs, but provides less than half the effort. 2-Substantial/Maximal Assistance-helper does MORE THAN HALF the effort. [place] lifts or holds trunk or limbs and provides more than half the effort. 5-Dmydjworo-nfzzfb does ALL the effort. Patient does none of the effort to complete the activity. Or, the assistance of 2 or more helpers is required for the patient to complete the activity. If activity was not attempted, code reason: 7-Patient Refused. 9-Not Applicable-not attempted and the patient did not perform the activity before the current illness, exacerbation or injury. 10-Not Attempted due to Environmental Limitations-(lack of equipment, weather restraints, etc.). 88-Not Attempted due to Medical Conditions or Safety Concerns. Sit to Stand (QC): 4 Weight Bearing Right Lower Extremity: Right Touch Toe Bearing Full Weight Bearing Gait Training Does the Patient Walk?: Yes Distance: x 5 ft, x 12 ft, 3 x 5 ft Walk 10 feet (QC): 4 Gait Persons Needed: 1 Gait Assistive Device: FWW FWW and w/c follow Wheelchair Training Does the Pt Use a Wheelchair?: Yes Wheel 50 ft with 2 turns (QC): 6 Type of Wheelchair: Manual pt. prefers to complete w/c mobility in reverse Treatments gait training with FWW, forward and retro ambulation in // bars, w/c mobility Assessment Current Status: Good Progress Pt. does well with ambulation using FWW but remains limited in distance; it is difficult to assess amount of weight she is placing on R LE during ambulation, appears to be more than TTWB although patient states it is very little weight. Pt. did well with fwd/bwd ambulation in // bars. Pt. returned to bedside chair post session with call light and all needs met. Pt. appears to be near max level of function at this time given WB status of R LE. PT Short Term Goals Short Term Goals Time Frame: Jan 18, 2022 Roll Left & Right: 6 Sit to lyin Lying to sitting on side of be: 4 Sit to stand: 3 Chair/zxq-uk-kgroe transfer: 4 Wheel 50ft w/2 turns: 3 PT Shelter Goals Shelter Goals PT Shelter Goals Time Frame: February 01, 2022 Roll Left & Right (QC): 6 Sit to Lying (QC): 3 (Brianna) Lying-Sitting on Side/Bed(QC): 6 Sit to Stand (QC): 4 (CGA) Chair/Hto-hn-Llwrh Xfer(QC): 4 (SBA) Toilet Transfer (QC): 4 (SBA) Car Transfer (QC): 3 (Brianna) Does the Patient Walk: Yes Walk 10 feet (QC): 4 (CGA) Walk 50ft with 2 Turns (QC): 88 Walk 150 ft (QC): 88 Walking 10ft on Uneven Surface: 88 1 Step (curb) (QC): 88 4 Steps (QC): 88 12 Steps (QC): 88 Picking up an Object (QC): 4 (using rv servicer) Wheel 50 feet with 2 turns (QC: 4 Wheel 150 feet: 4 PT Plan Treatment/Plan Treatment Plan: Continue Plan of Care Treatment Plan: Bed Mobility, Education, Functional Activity Yadi, Functional Strength, Group Therapy, Gait, Safety, Therapeutic Exercise, Transfers Treatment Duration: February 01, 2022 Frequency: At least 5 of 7 days/Wk (IRF) Estimated Hrs Per Day: 1.5 hours per day Patient and/or Family Agrees t: Yes Time/GCodes Time In: 841 Time Out: 906 Total Billed Treatment Time: 25 Total Billed Treatment 1, GT 15', FA 10' MAXIMO GONZALEZ PT Jan 21, 2022 10:02
[2022-01-21] MEDS: RIVAROXABAN 10 MG TABLET (XARELTO) PO SCH (17:53)
[2022-01-21 20:21] VITALS: BP 100/66
[2022-01-21] MEDS: ALPRAZolam 0.5 MG (XANAX) TAB PO SCH (21:17)
[2022-01-21] MEDS: MELATONIN 3 MG TABLET PO SCH (21:17)
[2022-01-22] MEDS: LEVOTHYROXINE 50 MCG (LEVOTHROID) TAB PO SCH (05:58)
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
[2022-01-22 07:30] VITALS: BP 110/78
[2022-01-22] MEDS: metFORMIN XR 500 MG (GLUCOPHAGE XR) TAB PO SCH (08:26)
[2022-01-22] MEDS: LACTOBACILLUS ACIDOPHILUS (PROBIOTIC) CAPSULE PO SCH ×3 (08:26→18:21)
[2022-01-22] MEDS: VITAMIN D3 25 MCG (1,000 UNITS) TABLET PO SCH (08:26)
[2022-01-22] MEDS: PANTOPRAZOLE 40 MG (PROTONIX) TAB PO SCH (08:27)
[2022-01-22] MEDS: LORATADINE (CLARITIN) 10 MG TAB PO SCH (08:27)
[2022-01-22] MEDS: MELOXICAM 7.5 MG (MOBIC) TABLET PO SCH (08:28)
[2022-01-22] MEDS: HYDROCORTISONE 1% CREAM 30 GM TUBE TOP SCH ×2 (08:28→22:06)
[2022-01-22] MEDS: MICONAZOLE 2% POWDER (DESENEX AF) 90 GM TOP SCH ×2 (08:29→22:07)
[2022-01-22] MEDS: ACETAMINOPHEN 500 MG TAB (TYLENOL) PO PRN ×2 (13:18→22:07)
[2022-01-22] MEDS: polyethylene glycoL POWDER 17 GM (MIRALAX) PACK PO SCH ×2 (17:00→22:05)
[2022-01-22] MEDS: DOCUSATE SODIUM 100 MG (COLACE) CAP PO SCH ×2 (17:00→22:05)
[2022-01-22] MEDS: SENNA W/DOCUSATE (SENOKOT S) TABLET PO SCH ×2 (17:00→22:05)
[2022-01-22] MEDS: RIVAROXABAN 10 MG TABLET (XARELTO) PO SCH (18:21)
[2022-01-22 20:07] VITALS: BP 132/71
[2022-01-22] MEDS: ALPRAZolam 0.5 MG (XANAX) TAB PO SCH (22:06)
[2022-01-22] MEDS: MELATONIN 3 MG TABLET PO SCH (22:06)
[2022-01-23 05:49] LABS: BASOPHILS % (AUTO) 1 % (0-10); EOSINOPHILS # (AUTO) 0.5 10^3/uL (0.0-0.3); EOSINOPHILS % (AUTO) 11 % (0-10); HEMATOCRIT 36 % (35-52); HEMOGLOBIN 11.4 g/dL (11.5-16.0); LYMPHOCYTES # (AUTO) 1.3 10^3/uL (1.0-4.0); LYMPHOCYTES % (AUTO) 33 % (12-44); MEAN CORPUSCULAR HEMOGLOBIN 30 pg (25-34); MEAN CORPUSCULAR HGB CONC 32 g/dL (32-36); MEAN CORPUSCULAR VOLUME 93 fL (80-99); MEAN PLATELET VOLUME 9.8 fL (9.0-12.2); MONOCYTES # (AUTO) 0.6 10^3/uL (0.0-1.0); MONOCYTES % (AUTO) 14 % (0-12); NEUTROPHILS # (AUTO) 1.7 10^3/uL (1.8-7.8); NEUTROPHILS % (AUTO) 41 % (42-75); PLATELET COUNT 328 10^3/uL (130-400)
[2022-01-23 06:07] LABS: ALBUMIN 3.1 GM/DL (3.2-4.5); POTASSIUM 4.1 MMOL/L (3.6-5.0)
[2022-01-23 06:10] LABS: TOTAL PROTEIN 5.9 GM/DL (6.4-8.2)
[2022-01-23 06:12] LABS: BILIRUBIN,TOTAL 0.4 MG/DL (0.1-1.0)
[2022-01-23 06:13] LABS: CREATININE SERUM 0.63 MG/DL (0.60-1.30)
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
[2022-01-23] MEDS: LEVOTHYROXINE 50 MCG (LEVOTHROID) TAB PO SCH (06:27)
[2022-01-23 08:00] VITALS: BP 106/56
[2022-01-23] MEDS: LORATADINE (CLARITIN) 10 MG TAB PO SCH (08:02)
[2022-01-23] MEDS: LACTOBACILLUS ACIDOPHILUS (PROBIOTIC) CAPSULE PO SCH ×3 (08:02→17:50)
[2022-01-23] MEDS: PANTOPRAZOLE 40 MG (PROTONIX) TAB PO SCH (08:02)
[2022-01-23] MEDS: MELOXICAM 7.5 MG (MOBIC) TABLET PO SCH (08:02)
[2022-01-23] MEDS: metFORMIN XR 500 MG (GLUCOPHAGE XR) TAB PO SCH (08:02)
[2022-01-23] MEDS: VITAMIN D3 25 MCG (1,000 UNITS) TABLET PO SCH (08:02)
[2022-01-23] MEDS: MICONAZOLE 2% POWDER (DESENEX AF) 90 GM TOP SCH ×2 (08:03→20:51)
[2022-01-23] MEDS: HYDROCORTISONE 1% CREAM 30 GM TUBE TOP SCH ×2 (08:03→20:51)
[2022-01-23] MEDS: DOCUSATE SODIUM 100 MG (COLACE) CAP PO SCH ×2 (08:10→20:41)
[2022-01-23] MEDS: SENNA W/DOCUSATE (SENOKOT S) TABLET PO SCH ×2 (09:00→20:50)
[2022-01-23] MEDS: polyethylene glycoL POWDER 17 GM (MIRALAX) PACK PO SCH ×2 (09:00→20:50)
--- NOTE | 2022-01-23 09:08 | Physical Therapy Daily Note ---
PT Daily Note-Current Subjective Pt sitting up in bed upon arrival. Pt agrees to PT. Pain Numeric Pain Scale: 0-No Pain Mental Status Patient Orientation: Person, Place, Time, Situation Attachments: Other-See Comments (CAM boot) Transfers SCALE: Activities may be completed with or without assistive devices. 0-Oopzoxvmzs-lfpnvey completes the activity by him/herself with no assistance from a helper. 5-Set-up or Clean-up Assistance-helper sets up or cleans up; patient completes activity. [place] assists only prior to or following the activity. 4-Supervision or Touching Assistance-helper provides verbal cues and/or touching/steadying and/or contact guard assistance as patient completes activity. Assistance may be provided throughout the activity or intermittently. 3-Partial/Moderate Assistance-helper does LESS THAN HALF the effort. [place] lifts, holds or supports trunk or limbs, but provides less than half the effort. 2-Substantial/Maximal Assistance-helper does MORE THAN HALF the effort. [place] lifts or holds trunk or limbs and provides more than half the effort. 2-Ffaihiesd-jkodvh does ALL the effort. Patient does none of the effort to complete the activity. Or, the assistance of 2 or more helpers is required for the patient to complete the activity. If activity was not attempted, code reason: 7-Patient Refused. 9-Not Applicable-not attempted and the patient did not perform the activity before the current illness, exacerbation or injury. 10-Not Attempted due to Environmental Limitations-(lack of equipment, weather restraints, etc.). 88-Not Attempted due to Medical Conditions or Safety Concerns. Roll Left & Right (QC): 6 Sit to Lying (QC): 6 Lying to Sitting/Side of Bed(Q: 6 Sit to Stand (QC): 6 Chair/Hgl-ma-Ubtbh Xfer(QC): 6 Toilet Transfer (QC): 6 Car Transfer (QC): 4 Weight Bearing Right Lower Extremity: Right Touch Toe Bearing Full Weight Bearing Gait Training Does the Patient Walk?: Yes Distance: 15' Walk 10 feet (QC): 5 Walk 50 ft with 2 Turns(QC): 5 Walk 150 ft (QC): 5 Walking 10ft/uneven surface-QC: 5 Gait Persons Needed: 1 Gait Assistive Device: FWW Wheelchair Training Does the Pt Use a Wheelchair?: Yes Wheel 50 ft with 2 turns (QC): 6 Wheel 150 ft (QC): 6 Type of Wheelchair: Manual Stair Training Stair Training: Handrails/: 2 handrails #of Steps: 1 1 Step (curb) (QC): 4 4 Steps (QC): 10 12 Steps (QC): 10 Stairs: Pattern: Step to Pt will have step that friend has made to get into and out of Sp's truck. Balance Picking up an Object (QC): 6 Exercises Seated Therapy Exercises: Ankle pumps, Long arc quads, Hip flexion, Hip abd/ add, Glut set Seated Reps: 15 Treatments Pt sitting up in bed upon arrival of PT. Pt completes QC's in room and practices WC mobility to gym and back to room. Pt TF to bedside commode. All needs met, call light in hand. Assessment Current Status: Good Progress Pt is motivated and pushes herself during tx. PT Short Term Goals Short Term Goals Time Frame: Jan 18, 2022 Roll Left & Right: 6 Sit to lyin Lying to sitting on side of be: 4 Sit to stand: 3 Chair/ccw-ke-mhipm transfer: 4 Wheel 50ft w/2 turns: 3 PT Community Organization Aide Goals Community Organization Aide Goals PT Community Organization Aide Goals Time Frame: February 01, 2022 Roll Left & Right (QC): 6 Sit to Lying (QC): 3 (Brianna) Lying-Sitting on Side/Bed(QC): 6 Sit to Stand (QC): 4 (CGA) Chair/Hmr-xc-Obnyb Xfer(QC): 4 (SBA) Toilet Transfer (QC): 4 (SBA) Car Transfer (QC): 3 (Brianna) Does the Patient Walk: Yes Walk 10 feet (QC): 4 (CGA) Walk 50ft with 2 Turns (QC): 88 Walk 150 ft (QC): 88 Walking 10ft on Uneven Surface: 88 1 Step (curb) (QC): 88 4 Steps (QC): 88 12 Steps (QC): 88 Picking up an Object (QC): 4 (using night shift supervisor) Wheel 50 feet with 2 turns (QC: 4 Wheel 150 feet: 4 PT Plan Treatment/Plan Treatment Plan: Continue Plan of Care Treatment Plan: Bed Mobility, Education, Functional Activity Yadi, Functional Strength, Group Therapy, Gait, Safety, Therapeutic Exercise, Transfers Treatment Duration: February 01, 2022 Frequency: At least 5 of 7 days/Wk (IRF) Estimated Hrs Per Day: 1.5 hours per day Patient and/or Family Agrees t: Yes Safety Risks/Education Patient Education: Steps Teaching Recipient: Patient Teaching Methods: Discussion Response to Teaching: Verbalize Understanding Time/GCodes Time In: 800 Time Out: 900 Total Billed Treatment Time: 60 Total Billed Treatment 1, FA x3 (45 min) EX (15 min) [employer] TICKER MAINTAINER Jan 23, 2022 09:08
--- NOTE | 2022-01-23 11:20 | Progress Note ---
MOHAN DIALLO 01/23/22 1120: Progress Note The patient was sitting in her chair this morning and was in good spirits. She reports that before inpatient rehab, that she was not able to get up out of bed. Now, she can get out of bed and ambulate from her bed to the door with a walker. She also reports that she is able to put on her pants, and take care of herself better. The patient's pharmacy is [facility] LEELA Abarca DO 01/23/222050: Supervisory-Addendum Brief Verification & Attestation Participated in pt care: history, MDM, physical Personally performed: exam, history, MDM, supervision of care Care discussed with: Medical Student Procedures: n/a Results interpretation: Verified all documentation Verification and Attestation of Medical Student E/M Service A medical student performed and documented this service in my presence. I reviewed and verified all information documented by the medical student and made modifications to such information, when appropriate. I personally performed the physical exam and medical decision making. Leela Austin, Jan 23, 2022,20:51 MOHAN DIALLO Jan 23, 2022 11:20 LEELA AUSTIN DO Jan 23, 2022 20:51
--- NOTE | 2022-01-23 13:34 | Occupational Ther Daily Note ---
OT Current Status-Daily Note Subjective Pt alert, sitting in w/c. Pt agrees to therapy. No c/o pain. Mental Status/Objective Patient Orientation: Person, Place, Time, Situation Attachments: Other-See Comments (Cam Boot) ADL-Treatment Pt agrees to shower. Pt retrieves clothing at w/c level. Shower completed in central bathing. Pt able to complete shower sitting on bariatric BSC using grabbars, LH sponge and hand held shower independently. Dons/doff shirt independently. Using lower body dressing equipment, pt able to complete lower body dressing by self using grabbar to pull to stand then hikes pants with FWW for stability when needed. Using AE pt able to don/doff socks/shoes independently Sitting at sink, pt able to complete oral care and grooming by self. Pt does require assistance with adjusting CAM boot when needed. After therapy, pt sitting in chair with call light/phone in reach. All needs met. Therapy Code Descriptions/Definitions Functional Young Measure: 0=Not Assessed/NA 4=Minimal Assistance 1=Total Assistance 5=Supervision or Setup 2=Maximal Assistance 6=Modified Young 3=Moderate Assistance 7=Complete IndependenceSCALE: Activities may be completed with or without assistive devices. 3-Upirgroesu-ngkkeuv completes the activity by him/herself with no assistance from a helper. 5-Set-up or Clean-up Assistance-helper sets up or cleans up; patient completes activity. [place] assists only prior to or following the activity. 4-Supervision or Touching Assistance-helper provides verbal cues and/or touching/steadying and/or contact guard assistance as patient completes activity. Assistance may be provided throughout the activity or intermittently. 3-Partial/Moderate Assistance-helper does LESS THAN HALF the effort. [place] lifts, holds or supports trunk or limbs, but provides less than half the effort. 2-Substantial/Maximal Assistance-helper does MORE THAN HALF the effort. [place] lifts or holds trunk or limbs and provides more than half the effort. 9-Ykeoilxzg-weaiwc does ALL the effort. Patient does none of the effort to c omplete the activity. Or, the assistance of 2 or more helpers is required for the patient to complete the activity. If activity was not attempted, code reason: 7-Patient Refused. 9-Not Applicable-not attempted and the patient did not perform the activity before the current illness, exacerbation or injury. 10-Not Attempted due to Environmental Limitations-(lack of equipment, weather restraints, etc.). 88-Not Attempted due to Medical Conditions or Safety Concerns. Eating (QC): 6 Oral Hygiene (QC): 6 Shower/Bathe Self (QC): 6 Upper Body Dressing (QC): 6 Lower Body Dressing (QC): 6 On/Off Footwear: 6 Toileting Hygiene (QC): 6 (Using bariatric commode, pt able to complete all by self.) Toilet Transfer (QC): 6 OT Short Term Goals Short Term Goals Time Frame: Jan 18, 2022 Eatin Oral hygiene: 5 Toileting hygiene: 2 Shower/bathe self: 3 Upper body dressin Lower body dressin Putting on/taking off footwear: 2 OT Jail Goals Jail Goals Time Frame: January 30, 2022 Eating (QC): 6 Oral Hygiene (QC): 6 Toileting Hygiene (QC): 6 Shower/Bathe Self (QC): 5 Upper Body Dressing (QC): 5 Lower Body Dressing (QC): 5 On/Off Footwear (QC): 5 1=Demonstrate adherence to instructed precautions during ADL tasks. 2=Patient will verbalize/demonstrate understanding of assistive devices/modifications for ADL. 3=Patient will improve strength/tolerance for activity to enable patient to perform ADL's. OT Education/Plan Problem List/Assessment Assessment: Impaired Self-Care Skills Discharge Recommendations Plan/Recommendations: Continue POC Treatment Plan/Plan of Care Patient would benefit from OT for education, treatment and training to promote independence in ADL's, mobility, safety and/or upper extremity function for ADL's. Plan of Care: ADL Retraining, Functional Mobility, Group Exercise/Act as Ind, Orthotic Fitting/Training, UE Funct Exercise/Act, W/C Management Training Treatment Duration: January 30, 2022 Frequency: At least 5 of 7 days/Wk (IRF) Estimated Hrs Per Day: 1.5 hours per day Rehab Potential: Fair Time/GCodes Start Time: 09:00 Stop Time: 10:30 Total Time Billed (hr/min): 90 Billed Treatment Time 1 visit-ADL 6 (90 min) SIMON MEADOWS Jan 23, 2022 13:34
--- NOTE | 2022-01-23 14:05 | Physical Therapy Daily Note ---
PT Daily Note-Current Subjective Pt agrees to PT. After tx pt states she has some pain in her left knee. Mental Status Patient Orientation: Person, Place, Time, Situation Attachments: Other-See Comments (CAM boot) Transfers SCALE: Activities may be completed with or without assistive devices. 4-Cjsyphnafw-nenvhas completes the activity by him/herself with no assistance from a helper. 5-Set-up or Clean-up Assistance-helper sets up or cleans up; patient completes activity. [place] assists only prior to or following the activity. 4-Supervision or Touching Assistance-helper provides verbal cues and/or touching/steadying and/or contact guard assistance as patient completes activity. Assistance may be provided throughout the activity or intermittently. 3-Partial/Moderate Assistance-helper does LESS THAN HALF the effort. [place] lifts, holds or supports trunk or limbs, but provides less than half the effort. 2-Substantial/Maximal Assistance-helper does MORE THAN HALF the effort. [place] lifts or holds trunk or limbs and provides more than half the effort. 9-Aewoecgwi-ydktgb does ALL the effort. Patient does none of the effort to complete the activity. Or, the assistance of 2 or more helpers is required for the patient to complete the activity. If activity was not attempted, code reason: 7-Patient Refused. 9-Not Applicable-not attempted and the patient did not perform the activity b efore the current illness, exacerbation or injury. 10-Not Attempted due to Environmental Limitations-(lack of equipment, weather restraints, etc.). 88-Not Attempted due to Medical Conditions or Safety Concerns. Sit to Lying (QC): 6 Sit to Stand (QC): 6 Toilet Transfer (QC): 6 Weight Bearing Right Lower Extremity: Right Touch Toe Bearing Full Weight Bearing Gait Training Does the Patient Walk?: Yes Distance: 10' Walk 10 feet (QC): 5 Gait Persons Needed: 1 Gait Assistive Device: FWW Wheelchair Training Does the Pt Use a Wheelchair?: Yes Stair Training #of Steps: 6 1 Step (curb) (QC): 4 4 Steps (QC): 4 Stairs: Pattern: Step to Treatments Pt on bed side commode with nursing upon arrival of PT. Pt TF from bed side commode to EOB. Pt states she wants to practice the single step and completes going up and down 3 times. Pt TF to bed laying supine. All needs met, call light in hand. Assessment Current Status: Good Progress Pt takes RB after each set of up & down one step. Pt is motivated and pushes herself during tx. PT Short Term Goals Short Term Goals Time Frame: Jan 18, 2022 Roll Left & Right: 6 Sit to lyin Lying to sitting on side of be: 4 Sit to stand: 3 Chair/vld-ol-versd transfer: 4 Wheel 50ft w/2 turns: 3 PT Snf Goals Snf Goals PT Snf Goals Time Frame: February 01, 2022 Roll Left & Right (QC): 6 Sit to Lying (QC): 3 (Brianna) Lying-Sitting on Side/Bed(QC): 6 Sit to Stand (QC): 4 (CGA) Chair/Iad-mq-Wrnve Xfer(QC): 4 (SBA) Toilet Transfer (QC): 4 (SBA) Car Transfer (QC): 3 (Brianna) Does the Patient Walk: Yes Walk 10 feet (QC): 4 (CGA) Walk 50ft with 2 Turns (QC): 88 Walk 150 ft (QC): 88 Walking 10ft on Uneven Surface: 88 1 Step (curb) (QC): 88 4 Steps (QC): 88 12 Steps (QC): 88 Picking up an Object (QC): 4 (using outsoles channel opener) Wheel 50 feet with 2 turns (QC: 4 Wheel 150 feet: 4 PT Plan Treatment/Plan Treatment Plan: Continue Plan of Care Treatment Plan: Bed Mobility, Education, Functional Activity Yadi, Functional Strength, Group Therapy, Gait, Safety, Therapeutic Exercise, Transfers Treatment Duration: February 01, 2022 Frequency: At least 5 of 7 days/Wk (IRF) Estimated Hrs Per Day: 1.5 hours per day Patient and/or Family Agrees t: Yes Safety Risks/Education Patient Education: Steps Teaching Recipient: Patient Teaching Methods: Discussion Response to Teaching: Verbalize Understanding Time/GCodes Time In: 1330 Time Out: 1400 Total Billed Treatment Time: 30 Total Billed Treatment 1, FA x2 (30 min) AUT[employer]N [employer] E[employer]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
[2022-01-23] MEDS: RIVAROXABAN 10 MG TABLET (XARELTO) PO SCH (17:50)
[2022-01-23] MEDS: ACETAMINOPHEN 500 MG TAB (TYLENOL) PO PRN (18:40)
[2022-01-23 20:40] VITALS: BP 100/69
[2022-01-23] MEDS: ALPRAZolam 0.5 MG (XANAX) TAB PO SCH (20:41)
[2022-01-23] MEDS: MELATONIN 3 MG TABLET PO SCH (20:42)
[2022-01-24] MEDS ORDERED: HYDR453. TOP (05:37)
[2022-01-24] MEDS ORDERED: LEVO50TA6 PO (05:37)
[2022-01-24] MEDS ORDERED: MICO90PO TOP (05:37)
[2022-01-24] MEDS ORDERED: PANT40TA52 PO (05:37)
[2022-01-24] MEDS ORDERED: LACT1CAP7 PO (05:37)
[2022-01-24] MEDS ORDERED: RIVA10T PO (05:37)
[2022-01-24] MEDS ORDERED: MELA3TAB39 PO (05:37)
[2022-01-24] MEDS ORDERED: CYCL10TA25 PO (05:37)
[2022-01-24] MEDS ORDERED: METF-478 PO (05:37)
[2022-01-24] MEDS ORDERED: ALPR0.5T7 PO (05:37)
[2022-01-24] MEDS ORDERED: MELO15TA39 PO (05:37)
[2022-01-24] MEDS ORDERED: ACHYD1T PO (05:37)
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
--- NOTE | 2022-01-24 05:40 | D/C HH Face to Face Order ---
D/C HH Face to Face Orders Reconcile Patient Problems Problems Reviewed?: Yes Instructions for Patient HH Patient Instructions/FollowUp: PCP Physician to follow Patient: Jeanmarie Discharge Diet for Home: ADA Diet Patient Problems: Ankle fracture Patient Data-Allergies,Ht & Wt Patient Allergies: Coded Allergies: Penicillins (Verified Allergy, Unknown, HIVES, 01/11/22) pseudoephedrine (Verified Allergy, Unknown, Visual Hallucinations, 01/11/22) Home Health Need/Face to Face Date of Face to Face: Jan 24, 2022 Clinical Findings: Instability, Muscle weakness, Non or partial weight bearing, Pain with ambulation, Unsteady gait I have seen Pt zvvg-vj-pkyr: Yes Discharged To: Home Diagnosis/Conditions: Ankle fracture Patient is Homebound due to: Joelle fall risk due to instabilty, Muscle wea kness, Pain w/ambulation Homebound Status Due to the above stated illness, injury or surgical procedure (medical condition or diagnosis) and associated clinical findings, the patient is homebound because of his/her inability to leave home except with aid of a supportive device and/or person AND leaving the home requires a considerable and taxing effort or is medically contraindicated. Pt req the following assistanc: Walker, Wheelchair Home Health Nursing Orders Home Health Services Order: Nursing Services, Funding Analyst-Evaluate & Treat, Physical Therapy-Evaluate & Treat Certify Stmt I certify that this patient is under my care and that I, a nurse practitioner or a physician; a corporate administrative assistant working with me, had a face to face encounter that - meets the physician face to face encounter requirements with this patient as dated. JESS CAIN DO Jan 24, 2022 05:39
[2022-01-24] MEDS: LEVOTHYROXINE 50 MCG (LEVOTHROID) TAB PO SCH (05:58)
[2022-01-24] MEDS: ACETAMINOPHEN 500 MG TAB (TYLENOL) PO PRN ×2 (05:58→11:08)
[2022-01-24 07:59] VITALS: BP 142/82
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
[2022-01-24] MEDS: VITAMIN D3 25 MCG (1,000 UNITS) TABLET PO SCH (08:49)
[2022-01-24] MEDS: SENNA W/DOCUSATE (SENOKOT S) TABLET PO SCH (08:49)
[2022-01-24] MEDS: LACTOBACILLUS ACIDOPHILUS (PROBIOTIC) CAPSULE PO SCH (08:49)
[2022-01-24] MEDS: DOCUSATE SODIUM 100 MG (COLACE) CAP PO SCH (08:49)
[2022-01-24] MEDS: PANTOPRAZOLE 40 MG (PROTONIX) TAB PO SCH (08:50)
[2022-01-24] MEDS: LORATADINE (CLARITIN) 10 MG TAB PO SCH (08:50)
[2022-01-24] MEDS: MELOXICAM 7.5 MG (MOBIC) TABLET PO SCH (08:50)
[2022-01-24] MEDS: metFORMIN XR 500 MG (GLUCOPHAGE XR) TAB PO SCH (08:50)
[2022-01-24] MEDS: MICONAZOLE 2% POWDER (DESENEX AF) 90 GM TOP SCH (08:51)
[2022-01-24] MEDS: polyethylene glycoL POWDER 17 GM (MIRALAX) PACK PO SCH (08:51)
[2022-01-24] MEDS: HYDROCORTISONE 1% CREAM 30 GM TUBE TOP SCH (08:51)
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
[2022-01-24 14:20] VITALS: BP 142/82
== END 2022-01-24 11:30 | disposition home health service (06) | DRG 560 ==
PROVIDERS: ADMIT Internal Medicine; ATTEND Internal Medicine
DX: S82.841D Displaced bimalleolar fracture of right lower leg, subsequent encounter for closed fracture with routine healing (principal); Z68.45 Body mass index [BMI] 70 or greater, adult; S82.831D Other fracture of upper and lower end of right fibula, subsequent encounter for closed fracture with routine healing; S06.0X1D Concussion with loss of consciousness of 30 minutes or less, subsequent encounter; S01.01XD Laceration without foreign body of scalp, subsequent encounter; E66.01 Morbid (severe) obesity due to excess calories; K21.9 Gastro-esophageal reflux disease without esophagitis; E03.9 Hypothyroidism, unspecified; E11.9 Type 2 diabetes mellitus without complications; N88.8 Other specified noninflammatory disorders of cervix uteri; F32.A Depression, unspecified; M19.91 Primary osteoarthritis, unspecified site; Z79.84 Long term (current) use of oral hypoglycemic drugs; Z88.0 Allergy status to penicillin; Z88.8 Allergy status to other drugs, medicaments and biological substances; V89.2XXD Person injured in unspecified motor-vehicle accident, traffic, subsequent encounter
CPT/HCPCS: 36415; 73600; 76830; 76856; 80053; 83036; 84443; 85025; 94664